=== PATIENT | female | born 1960 | race Caucasian/White ===

== ENCOUNTER 2019-12-04 01:07 | Emergency (ER) | payer OTHER ==
--- OUTSIDE RECORDS SUMMARY | 2019-12-04 01:10 | XMS REPORT | Clinical Summary ---
:1960 Author Organization [facility] Address [address] [place] [address] Care Team Providers Name Role Phone Unavailable Primary Care Provider Unavailable Allergies No Known Allergies Medications Medication Sig Dispensed Refills Start Date End Date Status losartan potassium Take by 0 A ctive (LOSARTAN ORAL) mouth. ondansetron Take 1 tablet 10 tablet 0 04/12/2018 Act blake (ZOFRAN-ODT) 4 MG (4 mg total) disintegrating by mouth tablet every 4 (four) hours as needed for Nausea for up to 10 doses. acetaminophen-codein Take 1-2 20 tablet 0 04/12/2018 05/07/20 19 Discontinued e (TYLENOL #3) tablets by 300-30 mg per tablet mouth every 4 (four) hours as needed for Pain for up to 20 doses. Max Daily Amount: 12 tablets acetaminophen-codein Take 1 tablet 15 tablet 0 05/07/201904/28 e (TYLENOL #3) by mouth 300-30 mg per tablet every 6 (six) hours as needed for up to 10 days. Max Daily Amount: 4 tablets ibuprofen Take 1 tablet 30 tablet 0 05/07/2019 05/17/2019 Expi red (ADVIL,MOTRIN) 400 (400 mg MG tablet total) by mouth every 6 (six) hours as needed for Pain for up to 10 days. Active Problems Not on file Encounters Date Type Specialty Care Team Description 05/07/2019 Emergency Emergency Medicine Cortes Mclean Righ t hand pain (Primary MD Dx) 05/07/2019 Travel after 12/03/2018 Social History Tobacco Use Types Packs/Day Years Used Date Never Smoker Smokeless Tobacco: Never Used Alcohol Use Drinks/Week oz/Week Comments No Sex Assigned at Date Recorded Not on file Job Start Date Occupation Industry Not on file Not on file Not on file Travel History Travel Start Travel End No recent travel history available. Last Filed Vital Signs Vital Sign Reading Time Taken Blood Pressure 122/66 05/07/2019 3:59 PM [employer] Pulse 90 05/07/2019 3:59 PM [employer] Temperature 36.6 C (97.9 F) 05/07/2019 3:59 PM [employer] Respiratory Rate 20 05/07/2019 3:59 PM [employer] Oxygen Saturation 100% 05/07/2019 3:59 PM [employer] Inhaled Oxygen Concentration - - Weight 147.4 kg (325 lb) 05/07/2019 3:59 PM [employer] Height 165.1 cm (5' 5") 05/07/2019 3:59 PM [employer] Body Mass Index 54.08 05/07/2019 3:59 PM [employer] Plan of Treatment Not on file Procedures Procedure Name Priority Date/Time Associated Diagnosis Comme nts XR HAND 3 VIEWS STAT 05/07/2019 4:16 PM Resul ts for this RIGHT [employer] procedure are i n the results section. after 12/03/2018 Results XR hand 3 views right (05/07/2019 4:16 PM [employer]) Specimen Narrative Performed At FINAL REPORT GE RIS EXAM: Right hand: AP, oblique, lateral v iews HISTORY PROVIDED: Hand injury COMPARISON: None available IMPRESSION: There is an ulnar styloid process fractu re of unknown chronicity. The patient is status post plate and screw f ixation involving the distal radius. No evidence of dislocation. The soft tissues demonstrate no radiopaque foreign body or soft tissue g as. Signed: Kay Hall MD Report Verified Date/Time:05/07/2019 16:26:08 Reading Location: [facility] Mammo Reading Ro om Procedure Note Interface, External Ris In - 05/07/2019 4:28 PM [employer] FINAL REPORT EXAM: Right hand: AP, oblique, lateral v iews HISTORY PROVIDED: Hand injury COMPARISON: None available IMPRESSION: There is an ulnar styloid process fractu re of unknown chronicity. The patient is status post plate and screw f ixation involving the distal radius. No evidence of dislocation. The soft tissues demonstrate no radiopaque foreign body or soft tissue g as. Signed: Kay Hall MD Report Verified Date/Time: 05/07/2019 1 6:26:08 Reading Location: [facility] Mammo Reading Ro om Performing Organization Address City/State/Zipcode Phone Number GE RIS after 12/03/2018 Insurance Payer Benefit Plan / Group Subscriber ID Type Phone A ddress [employer] - MGD CARE CIGNA HMO/POS/OPEN ACCESS xxxxxxxxxxx HMO/POS
--- OUTSIDE RECORDS SUMMARY | 2019-12-04 01:11 | XMS REPORT | Continuity of Care Document ---
:1960 Author Organization [facility] t Address [address] [place] [address] Care Team Providers Name Role Phone Juvenal Mclean MD Attending Clinician HAYDE SALAZAR Attending Clinician Unavailable Payers Payer Name Policy Type Policy Number Effective Date Expiration Date S margarita [employer] - MGD xxxxxxxxxxx [facility] - Medical HMO/POS/OPEN Center ACCESSxxxxxxxxx xxHMO/POS Problems This patient has no known problems. Allergies, Adverse Reactions, Alerts Allergy Allergy Status Severity Reaction(s) Onset Inactive Treating Comm ents Source Name Type Date Date Clinician No Known DA Active U 2017-06 [facility] [place] No Known DA Active U [facility] 5[facility]30 [place] [facility] Social History Social Habit Start Date Stop Date Quantity Comments Source Sex Assigned At [facility] Smoking Status Start Date Stop Date Source Never smoker [facility] Medications Ordered Filled Start Stop Current Ordering Indication Dosage Frequency Signature Comments Components Source Medication Medication Date Date Medication? Clinician (SIG) Name Name acetaminoph 2018-06 2019- No 1{tbl} Take [address] en-codeine 1-11 11-21 tablet by [place] - (TYLENOL 00:00: 23:59 mouth Medical #3) 300-30 00 :00 every 6 Center mg per (six) tablet hours as needed for up to 10 days. Max Daily Amount: 4 tablets ibuprofen 2018-06- No 400mg Take [address] [facility] (ADVIL,MOTR 07-07 tablet [facility] [place]) 400 MG 00:00: 23:59 (400 mg Med ical tablet 00 :00 total) by Center mouth every 6 (six) hours as needed for Pain for up to 10 days. losartan 2017-06 Yes Take by [facility] St potassium 0-17 mouth. [facility] - (LOSARTAN 12:05: Medical ORAL) 00 Center ondansetron 2017-06 Yes 4mg Take 1 [facility] (ZOFRAN-ODT 0-17 tablet (4 [place] - ) 4 MG 00:00: mg total) Medica l disintegrat 00 by mouth Cent er ing tablet every 4 (four) hours as needed for Nausea for up to 10 doses. acetaminoph 2017-06- No 1{tbl} Take 1-[address] en-codeine 0-17 05-07 tablets by [facility] - (TYLENOL 00:00: 00:00 mouth Medical #3) 300-30 00 :00 every 4 Center mg per (four) tablet hours as needed for Pain for up to 20 doses. Max Daily Amount: 12 tablets Vital Signs Vital Name Observation Time Observation Value Comments Source Systolic blood 2019-05-07 15:59:00 122 mm[Hg] [facility] Diastolic blood 2019-05-07 15:59:00 66 mm[Hg] [facility] S t [facility] Heart rate 2019-05-07 15:59:00 90 /min [facility] Body temperature 2019-05-07 15:59:00 36.61 Radha [facility] Respiratory rate 2019-05-07 15:59:00 20 /min [facility] Body height 2019-05-07 15:59:00 165.1 cm [facility] Body weight Measured 2019-05-07 15:59:00 147.419 kg [facility] BMI 2019-05-07 15:59:00 54.08 kg/m2 [facility] Oxygen saturation in 2019-05-07 15:59:00 100 /min [facility] - Arterial blood by Medical Ce nter Pulse oximetry Procedures Procedure Date / Time Performed Performing Clinician Sourc e XR HAND 3 VIEWS RIGHT 2019-05-07 16:16:00 [facility] Results Test Description Test Time Test Comments Results Result Sourc e Comments RAD, HAND, 3 2019-04-27 Reason for FINAL REPORT PATIENT VIEWS, RIGHT 1 exam:->HAND ID: [id number] EXAM: 16:26:00 INJURYIs the Right hand: AP, patient oblique, lateral ?->NoS views HISTORY hould this be PROVIDED: Hand performed at injury COMPARISON: the None available bedside?->No IMPRESSION:There is an ulnar styloid process fracture of unknown chronicity. The patient is status post plate and screw fixation involving the distal radius. No evidence of dislocation. The soft tissues demonstrate no radiopaque foreign body or soft tissue gas. Signed: Kay Hall Verified Date/Time: 05/07/2019 16:26:08 Reading Location: [facility] Reading Room hand 3 views 2019-04-27 Interface, External [facility] right 1 Ris In - 05/07/2019 - [facility] ical 16:26:00 4:28 PM [facility] Center REPORT EXAM: Right hand: AP, oblique, lateral views HISTORY PROVIDED: Hand injury COMPARISON: None available IMPRESSION:There is an ulnar styloid process fracture of unknown chronicity. The patient is status post plate and screw fixation involving the distal radius. No evidence of dislocation. The soft tissues demonstrate no radiopaque foreign body or soft tissue gas. Signed: Kay Hall Verified Date/Time: 05/07/2019 16:26:08 Reading Location: [facility] Reading Room , ABDOMEN 2018-03-27 FINAL REPORT PATIENT 7 ID: [id number] 14:37:00 INDICATION:57-year-o ld female with flank pain. COMPARISON: None. TECHNIQUE: CT of the Abdomen and Pelvis WITHOUT intravenous contrast. Enteric contrast was not used. The exam was performed according to our department dose-optimization protocol, which includes automated exposure control, adjustments of mA and kV according to patient size. Iterative reconstructions are also sometimes employed. FINDINGS:There is a 4 x 2 mm stone in a calyx of the lower pole of the left kidney. No hydronephrosis or periureteral stranding is demonstrated. Left extrarenal pelvis is noted. The left hemiabdomen is partially obscured by streak artifact from the patient's body wall up against the gantry. No gross renal mass demonstrated. Pelvic structures are not well visualized as of streak artifact from internal fixation plate across the pubic symphysis and because of streak artifact from the patient's body wall up against the gantry. No obvious pelvic mass is demonstrated. Liver, gallbladder, pancreas, spleen, adrenal glands are unremarkable. No bowel mass is identified. No peritoneal free fluid or free air. Osseous structures, to the extent visualized, unremarkable. IMPRESSION: 4 x 2 mm stone in the lower pole of the left kidney. No obstructing urolithiasis demonstrated, though sensitivity is decreased because of streak artifact from the patient's body wall up against the gantry. Signed: Armando Vergara MDReport Verified Date/Time: 04/12/2018 14:37:51 Reading Location: [facility] Diagnostic Imaging Reading Room - [place] [id number] C METABOLIC PANEL 2018-04-12 13:17:00 Test Item Value Reference Range Interpretation Comme nts SODIUM (BEAKER) (test code 140 meq/L 135-148 = 381) POTASSIUM (BEAKER) (test 4.1 meq/L 3.6-5.5 code = 379) CHLORIDE (BEAKER) (test 100 meq/L 98-106 code = 382) CO2 (BEAKER) (test code = 28 meq/L 24-32 355) BLOOD UREA NITROGEN 25 mg/dL 10-26 (BEAKER) (test code = 354) CREATININE (BEAKER) (test 0.95 mg/dL 0.50-1.20 code = 358) GLUCOSE RANDOM (BEAKER) 154 mg/dL 70-110 H (test code = 652) CALCIUM (BEAKER) (test code 9.3 mg/dL 8.5-10.5 = 697) EGFR (BEAKER) (test code = mL/min/1.73 sq m INSUFFICIENT CLINICAL DATA 1092) TO CALCULATE ES TIMATED GFR. [id number] 13:17:00 Test Item Value Reference Range Interpretation Comments PROTIME (BEAKER) (test code = 10.2 seconds 9.8-12.0 759) INR (BEAKER) (test code = 370) 0.9 <=5.9 PARTIAL THROMBOPLASTIN TIME 22.9 seconds 25.8-34.5 L (BEAKER) (test code = 760) RECOMMENDED COUMADIN/WARFARIN INR THERAPY RANGESSTANDARD DOSE: 2.0 - 3.0 Includes: PROPHYLAXIS forvenous thrombosis, systemic embolization; TREATMENT for venous thrombosis and/or pulmonary embolus.HIGH RISK: Target INR is 2.5-3.5 for patients with mechanical heart valves.HEPATIC FUNCTION [id number] 13:15:00 Test Item Value Reference Range Interpretation Comments TOTAL PROTEIN (BEAKER) (test code = 8.0 gm/dL 6.0-8.5 770) ALBUMIN (BEAKER) (test code = 1145) 4.0 g/dL 3.5-5.0 BILIRUBIN TOTAL (BEAKER) (test code 0.5 mg/dL 0.1-1.2 = 377) BILIRUBIN DIRECT (BEAKER) (test 0.1 mg/dL 0.0-0.4 code = 706) ALKALINE PHOSPHATASE (BEAKER) (test 96 U/L 30-115 code = 346) AST (SGOT) (BEAKER) (test code = 28 U/L 5-40 353) ALT (SGPT) (BEAKER) (test code = 43 U/L 5-50 347) [id number] 13:15:00 Test Item Value Reference Range Interpretation Comments LIPASE (BEAKER) (test code = 749) 128 U/L 40-240 CBC W/PLT COUNT & AUTO [id number] 13:09:00 Test Item Value Reference Range Interpretation Comments WHITE BLOOD CELL COUNT (BEAKER) 11.1 K/ L 4.0-10.0 H (test code = 775) RED BLOOD CELL COUNT (BEAKER) 4.91 M/ L 4.00-5.00 (test code = 761) HEMOGLOBIN (BEAKER) (test code = 14.1 GM/DL 12.0-15.0 410) HEMATOCRIT (BEAKER) (test code = 43.7 % 36.0-45.0 411) MEAN CORPUSCULAR VOLUME (BEAKER) 89.0 fL 82.0-99.0 (test code = 753) MEAN CORPUSCULAR HEMOGLOBIN 28.8 pg 27.0-33.0 (BEAKER) (test code = 751) MEAN CORPUSCULAR HEMOGLOBIN CONC 32.3 GM/DL 32.0-36.0 (BEAKER) (test code = 752) RED CELL DISTRIBUTION WIDTH 12.3 % 10.3-14.2 (BEAKER) (test code = 412) PLATELET COUNT (BEAKER) (test 312 K/CU MM 150-430 code = 756) MEAN PLATELET VOLUME (BEAKER) 8.2 fL 6.5-10.5 (test code = 754) NEUTROPHILS RELATIVE PERCENT 69 % (BEAKER) (test code = 429) LYMPHOCYTES RELATIVE PERCENT 22 % (BEAKER) (test code = 430) MONOCYTES RELATIVE PERCENT 7 % (BEAKER) (test code = 431) EOSINOPHILS RELATIVE PERCENT 2 % (BEAKER) (test code = 432) BASOPHILS RELATIVE PERCENT 1 % (BEAKER) (test code = 437) NEUTROPHILS ABSOLUTE COUNT 7.64 K/ L 1.80-8.00 (BEAKER) (test code = 670) LYMPHOCYTES ABSOLUTE COUNT 2.39 K/ L 1.48-4.50 (BEAKER) (test code = 414) MONOCYTES ABSOLUTE COUNT (BEAKER) 0.76 K/ L 0.00-1.30 (test code = 415) EOSINOPHILS ABSOLUTE COUNT 0.20 K/ L 0.00-0.50 (BEAKER) (test code = 416) BASOPHILS ABSOLUTE COUNT (BEAKER) 0.12 K/ L 0.00-0.20 (test code = 417) URINALYSIS W/ [id number] 12:33:00 Test Item Value Reference Range Interpretation Comments COLOR (BEAKER) (test code = 470) Yellow CLARITY (BEAKER) (test code = 469) Cloudy SPECIFIC GRAVITY UA (BEAKER) (test 1.025 1.001-1.035 code = 468) PH UA (BEAKER) (test code = 467) 5.5 5.0-8.0 PROTEIN UA (BEAKER) (test code = 30 mg/dL Negative A 464) GLUCOSE UA (BEAKER) (test code = Negative Negative 365) KETONES UA (BEAKER) (test code = Negative Negative 371) BILIRUBIN UA (BEAKER) (test code = Negative Negative 462) BLOOD UA (BEAKER) (test code = Moderate Negative A 461) NITRITE UA (BEAKER) (test code = Negative Negative 465) LEUKOCYTE ESTERASE UA (BEAKER) Trace Negative A (test code = 466) UROBILINOGEN UA (BEAKER) (test 0.2 mg/dL 0.2-1.0 code = 463) BACTERIA (BEAKER) (test code = Moderate 517) RBC UA-MANUAL (BEAKER) (test code 10-20 /HPF = 1659) WBC UA-MANUAL (BEAKER) (test code 20-50 /HPF = 1661) SQUAMOUS EPITHELIAL MANUAL 20-50 /HPF (BEAKER) (test code = 1663) SOURCE(BEAKER) (test code = 8866)
[2019-12-04 01:44] LABS: Urine Blood 3+ (NEG); Urine Glucose NEGATIVE (NEG); Urine Protein 3+ (NEG); Urine Specific Gravity 1.025 (1.005-1.030); Urine pH 6.5 (5.0-7.0)
[2019-12-04] MEDS ORDERED: ONDANSETRON 4 MG/2 ML VIAL ONE (01:47)
[2019-12-04] MEDS ORDERED: NA CHLORIDE 0.9% 1,000 ML ONE (01:47)
[2019-12-04] MEDS ORDERED: MORPHINE 4 MG/ML SYR ONE (01:47)
[2019-12-04 02:13] LABS: Absolute Lymphocytes (CBC) 2.3 K/uL (0.7-4.9); Basophils % 1.2 % (0-1.3); Hematocrit 42.9 % (36.0-45.0); Lymphocytes % 21.6 % (15.3-44.8); MPV 9.8 fL (7.6-11.3)
[2019-12-04 02:29] LABS: Albumin 3.3 g/dL (3.4-5.0); Bilirubin Direct 0.1 mg/dL (0-0.2); Bilirubin Total 0.5 mg/dL (0.2-1.0); Potassium 4.2 mmol/L (3.5-5.1); Protein, Total 7.8 g/dL (6.4-8.2)
[2019-12-04] MEDS ORDERED: METOCLOPRAMIDE 10 MG/2mL INJ ONE (03:17)
[2019-12-04] MEDS ORDERED: CEFTRIAXONE/SWI 1gm 1 GM/10 ML SYR ONE (03:35)
[2019-12-04] MEDS ORDERED: KETOROLAC 30 MG/ML INJ ONE (03:57)
--- NOTE | 2019-12-04 04:37 | ER ---
Nurse's Notes [facility] Name: Lidia Concepcion Age: 59 yrs Sex: Female : 1960 Arrival Date: 12/04/2019 Time: :09 Bed 6 Private MD: Diagnosis: Calculus of kidney and ureter;Urinary tract infection, site not specified Presentation: 12/03 01:19 Chief complaint: Patient states: At about 10PM last night I started having low back tl1 pain and pelvic pain. I also have a lot of pressure and feel like I have to constantly urinate. I am also nauseated. Coronavirus screen: Patient denies a cough. Patient denies shortness of breath or difficulty breathing. Patient denies measured and/or subjective temperature greater than 100.4F prior to today's visit. Patient denies travel on a cruise ship or to a country the [facility] currently lists as an affected area. Patient denies contact with known and/or suspected case of COVID-19. Ebola Screen: Patient negative for fever greater than or equal to 101.5 degrees Fahrenheit, and additional compatible Ebola Virus Disease symptoms Patient denies exposure to infectious person. Patient denies travel to an Ebola-affected area in the 21 days before illness onset. Initial Sepsis Screen: Does the patient meet any 2 criteria? HR > 90 bpm. Does the patient have a suspected source of infection? No. Patient's initial sepsis screen is negative. Risk Assessment: Do you want to hurt yourself or someone else? Patient reports no desire to harm self or others. Onset of symptoms was December 03, 2019. 01:19 Method Of Arrival: Wheelchair tl1 01:19 Acuity: DIANA 3 tl1 Historical: - Allergies: 01:23 No Known Allergies; tl1 - Home Meds: 01:23 losartan-hydrochlorothiazide 100-25 mg Oral tab 1 tab once daily [Active]; tl1 - PMHx: 01:23 Hypertension; Obesity; tl1 - PSHx: 01:23 back surgery; wrist surgery; pelvic surgery; tl1 - Immunization history:: Adult Immunizations up to date. - Social history:: Smoking status: Patient denies any tobacco usage or history of. Patient uses alcohol, occasionally. Screenin:49 Abuse screen: Denies threats or abuse. Denies injuries from another. Nutritional wh screening: No deficits noted. Tuberculosis screening: No symptoms or risk factors identified. Fall Risk None identified. Assessment: 01:48 General: Appears in no apparent distress. Behavior is calm, cooperative, appropriate wh for age. Pain: Complains of pain in left lower quadrant Pain radiates to suprapubic area and left inguinal area Pain currently is 10 out of 10 on a pain scale. Quality of pain is described as throbbing, Pain began 3 hours ago. Is intermittent. Neuro: Level of Consciousness is awake, alert, obeys commands, Oriented to person, place, time, situation, Appropriate for age. Cardiovascular: Heart tones S1 S2. Respiratory: Airway is patent Respiratory effort is even, unlabored, Respiratory pattern is regular, symmetrical, Breath sounds are clear bilaterally. GI: Abdomen is flat, non-distended, Reports nausea. : Reports pain in suprapubic area. EENT: No signs and/or symptoms were reported regarding the EENT system. Derm: Skin is intact, is healthy with good turgor, Skin is pink, warm \T\ dry. normal. Musculoskeletal: Circulation, motion, and sensation intact. 03:04 Reassessment: Patient appears in no apparent distress at this time. No changes from previously documented assessment. Patient and/or family updated on plan of care and expected duration. Pain level reassessed. Patient is alert, oriented x 3, equal unlabored respirations, skin warm/dry/pink. 04:39 Reassessment: Patient appears in no apparent distress at this time. No changes from previously documented assessment. Patient and/or family updated on plan of care and expected duration. Pain level reassessed. Patient is alert, oriented x 3, equal unlabored respirations, skin warm/dry/pink. Patient states feeling better. Patient states symptoms have improved. Vital Signs: 01:22 BP 130 / 100; Pulse 102; Resp 19; Temp 97.9(O); Pulse Ox 98% ; Weight 141.52 kg; Height tl1 5 ft. 4 in. (162.56 cm); Pain 10/10; 03:04 BP 124 / 60; Pulse 101; Resp 18; Pulse Ox 97% on R/A; wh 04:30 BP 128 / 72; Pulse 98; Resp 18; Pulse Ox 99% on R/A; wh 01:22 Body Mass Index 53.55 (141.52 kg, 162.56 cm) tl1 ED Course: 01:09 Patient arrived in ED. ds1 01:13 Wood Xiong is Primary Nurse. wh 01:14 Anthony Gonzalez MD is Attending Physician. mh7 01:22 Triage completed. tl1 01:22 Arm band placed on right wrist. tl1 01:50 Patient has correct armband on for positive identification. Placed in gown. Bed in low wh position. Call light in reach. Side rails up X 1. Pulse ox on. NIBP on. 01:50 Missed attempt(s): 20 gauge in right antecubital area. Bleeding controlled, band aid wh applied, catheter tip intact. 02:00 Inserted saline lock: 20 gauge in left forearm, using aseptic technique. Blood wh collected. 03:13 CT Abd/Pelvis - IV Contrast Only In Process Unspecified. EDMS 04:34 Patti Gupta MD is Referral Physician. 7 04:49 No provider procedures requiring assistance completed. IV discontinued, intact, wh bleeding controlled, No redness/swelling at site. Administered Medications: 01:50 Drug: NS 0.9% 1000 ml Route: IV; Rate: 1000 ml; Site: left forearm; rr5 03:16 Follow up: Response: No adverse reaction; IV Status: Completed infusion 01:51 Drug: Zofran (Ondansetron) 4 mg Route: IVP; Site: left forearm; rr5 03:16 Follow up: Response: Nausea unchanged 01:53 Drug: morphine 4 mg {Note: rass 0.} Route: IVP; Site: left forearm; rr5 03:16 Follow up: Response: No adverse reaction; Pain is unchanged, physician notified; RASS: Alert and Calm (0) 03:15 Drug: Reglan 10 mg Route: IVP; Site: left antecubital; 04:41 Follow up: Response: No adverse reaction; Nausea is decreased 03:32 Drug: Rocephin - (cefTRIAXone) 1 grams Route: IVPB; Infused Over: 30 mins; Site: left wh forearm; 04:41 Follow up: Response: No adverse reaction; IV Status: Completed infusion 03:53 Drug: TORadol 30 mg Route: IVP; Site: left forearm; 04:41 Follow up: Response: No adverse reaction; Pain is decreased Outcome: 04:36 Discharge ordered by mh7 04:49 Discharged to home via wheelchair. 04:49 Condition: stable 04:49 Discharge instructions given to patient, Instructed on discharge instructions, follow up and referral plans. medication usage, urine strainer, POC Demonstrated understanding of instructions, follow-up care, medications, POC Prescriptions given X 4. 04:50 Patient left the ED. Signatures: Dispatcher [employer] EDMN Shameka Huerta ds1 Umm Tamayo RN RN tl1 Wood Xiong Reynaldo Bowers RN RN rr5 Anthony Gonzalez MD MD mh7 Corrections: (The following items were deleted from the chart) 03:23 03:04 BP 124 / 60; Pulse 101bpm; Resp 1bpm; Pulse Ox 97% RA; [facility]
--- NOTE | 2019-12-04 04:37 | EDPHYS ---
Physician Documentation [facility] Name: Lidia Concepcion Age: 59 yrs Sex: Female : 1960 Arrival Date: 12/04/2019 Time: : Bed 6 Private MD: ED Physician Anthony Gonzalez HPI: 12/03 01:31 This 59 yrs old Female presents to ER via Wheelchair with complaints of mh7 Pelvic Pain, Back Pain. 01:32 The patient complains of pain in the left flank. The pain radiates to the left lower mh7 abdomen. Onset: The symptoms/episode began/occurred today, 3 hour(s) ago. Modifying factors: The symptoms are alleviated by nothing. the symptoms are aggravated by movement. Associated signs and symptoms: Pertinent positives: nausea, Pertinent negatives: diarrhea, dizziness, dysuria, fever, urinary frequency, headache, hematuria, pain radiating to the lower extremities, vomiting. Severity of pain: At its worst the pain was moderate today, in the emergency department the pain is unchanged. Historical: - Allergies: 01:23 No Known Allergies; tl1 - Home Meds: 01:23 losartan-hydrochlorothiazide 100-25 mg Oral tab 1 tab once daily [Active]; tl1 - PMHx: 01:23 Hypertension; Obesity; tl1 - PSHx: 01:23 back surgery; wrist surgery; pelvic surgery; tl1 - Immunization history:: Adult Immunizations up to date. - Social history:: Smoking status: Patient denies any tobacco usage or history of. Patient uses alcohol, occasionally. ROS: 01:32 Constitutional: Negative for fever, chills, and weight loss, Eyes: Negative for injury, mh7 pain, redness, and discharge, ENT: Negative for injury, pain, and discharge, Neck: Negative for injury, pain, and swelling, Cardiovascular: Negative for chest pain, palpitations, and edema, Respiratory: Negative for shortness of breath, cough, wheezing, and pleuritic chest pain, : Negative for injury, bleeding, discharge, and swelling, MS/Extremity: Negative for injury and deformity, Skin: Negative for injury, rash, and discoloration, Neuro: Negative for headache, weakness, numbness, tingling, and seizure, Psych: Negative for depression, anxiety, suicide ideation, homicidal ideation, and hallucinations, Allergy/Immunology: Negative for hives, rash, and allergies, Endocrine: Negative for neck swelling, polydipsia, polyuria, polyphagia, and marked weight changes, Hematologic/Lymphatic: Negative for swollen nodes, abnormal bleeding, and unusual bruising. Exam: 01:32 Constitutional: This is a well developed, well nourished patient who is awake, alert, mh7 and in no acute distress. Head/Face: Normocephalic, atraumatic. Eyes: Pupils equal round and reactive to light, extra-ocular motions intact. Lids and lashes normal. Conjunctiva and sclera are non-icteric and not injected. Cornea within normal limits. Periorbital areas with no swelling, redness, or edema. Neck: Trachea midline, no thyromegaly or masses palpated, and no cervical lymphadenopathy. Supple, full range of motion without nuchal rigidity, or vertebral point tenderness. No Meningismus. Chest/axilla: Normal chest wall appearance and motion. Nontender with no deformity. No lesions are appreciated. Cardiovascular: Regular rate and rhythm with a normal S1 and S2. No gallops, murmurs, or rubs. Normal PMI, no JVD. No pulse deficits. Respiratory: Lungs have equal breath sounds bilaterally, clear to auscultation and percussion. No rales, rhonchi or wheezes noted. No increased work of breathing, no retractions or nasal flaring. 01:32 Skin: Warm, dry with normal turgor. Normal color with no rashes, no lesions, and no evidence of cellulitis. MS/ Extremity: Pulses equal, no cyanosis. Neurovascular intact. Full, normal range of motion. Neuro: Awake and alert, GCS 15, oriented to person, place, time, and situation. Cranial nerves II-XII grossly intact. Motor strength 5/5 in all extremities. Sensory grossly intact. Cerebellar exam normal. Normal gait. Psych: Awake, alert, with orientation to person, place and time. Behavior, mood, and affect are within normal limits. 01:32 Abdomen/GI: Inspection: abdomen appears normal, obese Bowel sounds: normal, in all quadrants, Palpation: mild abdominal tenderness, in the left lower quadrant, Rectal exam: the exam is deferred, because of patient request, Indicators: McBurney's point is not tender, Nam's sign is negative, Rovsing's sign is negative, Obturator sign is negative, Psoas sign is negative, Liver: no appreciated palpable abnormalities, Hernia: not appreciated. 01:32 Back: pain, is absent, ROM is normal, normal spinal alignment noted, CVA tenderness, that is mild, is noted on the left, vertebral tenderness, is not appreciated, muscle spasm, is not present. 01:32 : CVA tenderness, on the left, Bladder: is normal. Vital Signs: 01:22 BP 130 / 100; Pulse 102; Resp 19; Temp 97.9(O); Pulse Ox 98% ; Weight 141.52 kg; Height tl1 5 ft. 4 in. (162.56 cm); Pain 10/10; 03:04 BP 124 / 60; Pulse 101; Resp 18; Pulse Ox 97% on R/A; wh 04:30 BP 128 / 72; Pulse 98; Resp 18; Pulse Ox 99% on R/A; wh 01:22 Body Mass Index 53.55 (141.52 kg, 162.56 cm) tl1 MDM: 01:29 Patient medically screened. [facility] 04:09 Differential diagnosis: nephrolithiasis, pyelonephritis, UTI, diverticulitis, ruptured mh7 AAA, dissecting AAA. Data reviewed: vital signs, nurses notes, lab test result(s), CBC, electrolytes, urinalysis, radiologic studies, CT scan. Data interpreted: Pulse oximetry: on room air is 97 %. Interpretation: normal. Counseling: I had a detailed discussion with the patient and/or guardian regarding: the historical points, exam findings, and any diagnostic results supporting the discharge/admit diagnosis, lab results, radiology results. 04:34 Counseling: I had a detailed discussion with the patient and/or guardian regarding: the mh7 need for outpatient follow up, to return to the emergency department if symptoms worsen or persist or if there are any questions or concerns that arise at home. Response to treatment: the patient's symptoms have resolved after treatment, the patient's blood pressure is in an acceptable range, mental status has returned to baseline, the patient no longer shows bradycardia, the patient is not short of breath, the patient is not tachycardic, the patient's pain is gone, the patient's temperature has normalized. 12/03 01:30 Order name: Urine Dipstick--Ancillary (enter results); Complete Time: 02:03 [place]j 12/03 01:30 Order name: Basic Metabolic Panel; Complete Time: 02:36 [facility] 12/03 01:30 Order name: CBC with Diff; Complete Time: 02:36 [facility] 12/03 01:30 Order name: Hepatic Function; Complete Time: 02:36 [facility] 12/03 01:30 Order name: Lipase; Complete Time: 02:36 [facility] 12/03 01:31 Order name: CT Abd/Pelvis - IV Contrast Only [facility] 12/03 01:30 Order name: IV Saline Lock; Complete Time: 01:46 [facility] 12/03 01:30 Order name: Labs collected and sent; Complete Time: :46 7 Administered Medications: 01:50 Drug: NS 0.9% 1000 ml Route: IV; Rate: 1000 ml; Site: left forearm; rr5 03:16 Follow up: Response: No adverse reaction; IV Status: Completed infusion 01:51 Drug: Zofran (Ondansetron) 4 mg Route: IVP; Site: left forearm; rr5 03:16 Follow up: Response: Nausea unchanged 01:53 Drug: morphine 4 mg {Note: rass 0.} Route: IVP; Site: left forearm; rr5 03:16 Follow up: Response: No adverse reaction; Pain is unchanged, physician notified; RASS: Alert and Calm (0) 03:15 Drug: Reglan 10 mg Route: IVP; Site: left antecubital; 04:41 Follow up: Response: No adverse reaction; Nausea is decreased 03:32 Drug: Rocephin - (cefTRIAXone) 1 grams Route: IVPB; Infused Over: 30 mins; Site: left forearm; 04:41 Follow up: Response: No adverse reaction; IV Status: Completed infusion 03:53 Drug: TORadol 30 mg Route: IVP; Site: left forearm; wh 04:41 Follow up: Response: No adverse reaction; Pain is decreased Disposition: 12/04/19 04:36 Discharged to Home. Impression: Calculus of kidney and ureter, Urinary tract infection, site not specified. - Condition is Stable. - Discharge Instructions: Kidney Stones, [id number], Urinary Tract Infection, Adult, [id number]. - Prescriptions for Zofran ODT 4 mg Oral tablet,disintegrating - place 1 tablet by TRANSLINGUAL route every 8 hours As needed; 10 tablet. ketorolac 10 mg Oral tablet - take 1 tablet by ORAL route every 8 hours As needed not to exceed 40 mg in 24hrs; 15 tablet. Flomax 0.4 mg Oral Capsule, Sust. Release 24 hr - take 1 capsule by ORAL route once daily 1/2 hour following the same meal each day; 30 capsule. Cipro 500 mg Oral Tablet - take 1 tablet by ORAL route every 12 hours for 7 days; 14 tablet. - Medication Reconciliation Form, Thank You Letter, Antibiotic Education, Prescription Opioid Use form. - Follow up: Private Physician; When: 1 - 2 days; Reason: Worsening of condition, Recheck today's complaints, Re-evaluation by your physician. Follow up: Patti Gupta MD; When: 1 - 2 days; Reason: Worsening of condition, Recheck today's complaints. - Problem is an acute exacerbation. - Symptoms have improved. Signatures: Dispatcher [employer] EDIA Umm Tamayo RN RN tl1 Wood Xiong Raymond, RN RN rr5 Anthony Gonzalez MD MD mh7 Corrections: (The following items were deleted from the chart) 04:50 04:36 12/04/2019 04:36 Discharged to Home. Impression: Calculus of kidney and ureter; wh Urinary tract infection, site not specified. Condition is Stable. Forms are Medication Reconciliation Form, Thank You Letter, Antibiotic Education, Prescription Opioid Use. Follow up: Private Physician; When: 1 - 2 days; Reason: Worsening of condition, Recheck today's complaints, Re-evaluation by your physician. Follow up: Patti Gupta; When: 1 - 2 days; Reason: Worsening of condition, Recheck today's complaints. Problem is an acute exacerbation. Symptoms have improved. mh7
[2019-12-04 04:55] VITALS: TEMP 97.9
[2019-12-04 04:58] VITALS: BP 128/72; O2SAT 99
--- NOTE | 2019-12-04 15:45 | RAD REPORT ---
EXAM DESCRIPTION: CT - Abdomen Pelvis W Contrast - 12/04/2019 6:52 am CLINICAL HISTORY: ABD PAIN COMPARISON: None. TECHNIQUE: CT ABDOMEN PELVIS WITH IV CONTRAST on 12/04/2019 1:31 AM CDT This exam was performed according to our departmental dose-optimization program, which includes autom ated exposure control, adjustment of the mA and/or kV according to patient size and/or use of iterati ve reconstruction technique. FINDINGS: Lower lungs are clear. Abdomen: Liver is fatty in attenuation. There is no biliary dilatation. Gallbladder is normal in appe arance. The pancreas and spleen are normal in appearance. Adrenal glands are normal. Kidneys are mild ly atrophic. There is a large central collecting system calculus within the right kidney measuring 2. 3 cm. There is mild left hydronephrosis with two lower pole calculi measuring up to 4 mm. There is a 3 mm left UVJ calculus. Abdominal aorta is normal in course and caliber without aneurysm. There is no free air. There is no r etroperitoneal adenopathy. Pelvis: There is no bowel obstruction. Urinary bladder is unremarkable. There is no free fluid. Uteru s is normal in size. Appendix is not well seen. There are postoperative changes of the symphysis pubi s. Skeleton: There are no acute osseous findings. No suspicious bony lesions. IMPRESSION: Mildly obstructing 3 mm left UVJ calculus. Electronically signed by: Gerardo Goodrich MD 12/04/2019 3:26 AM CDT Due to temporary technical issues with the PACS/Fluency reporting system, reports are being signed by the in house radiologist without review as a courtesy to ensure prompt reporting. The interpreting r adiologist is fully responsible for the content of the report.
== END 2019-12-04 04:50 | disposition home or self-care (01) ==
LOC: ER 01:07
DX: N20.2 Calculus of kidney with calculus of ureter (principal); N39.0 Urinary tract infection, site not specified; I10 Essential (primary) hypertension; E66.9 Obesity, unspecified
CPT/HCPCS: 96365; 96361; 85025; 80048; 36415; 80076; 81003; 83690; 74177; 96375; 99284; Q9967; J2765; J0696; J7030; J2405

== ENCOUNTER → 2023-09-21 | Emergency (ER) | payer OTHER ==
[~2023-09-21] MED LIST: ACETAMINOPHEN 500 MG TAB ONE; GUAIFENESIN/DM 5 ML UCUP ONE; IBUPROFEN 400 MG TAB ONE; ONDANSETRON 4 MG (ODT) TAB ONE
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
--- NOTE | 2023-09-21 21:11 | RAD REPORT ---
EXAM DESCRIPTION: Marly Single View09/21/2023 9:01 pm CLINICAL HISTORY: Chest pain COMPARISON: none FINDINGS: The lungs appear clear of acute infiltrate. The heart is normal size IMPRESSION: No acute abnormalities displayed
--- NOTE | 2023-09-21 21:21 | RAD REPORT ---
EXAM DESCRIPTION: CT - Head Brain Wo Cont - 09/21/2023 9:11 pm CLINICAL HISTORY: Headache COMPARISON: none TECHNIQUE: Computed axial tomography of the head was obtained. IV contrast was not requested. All CT scans are performed using dose optimization technique as appropriate and may include automated exposure control or mA/KV adjustment according to patient size. FINDINGS: An intracranial bleed is not seen The ventricles are normal in caliber No significant hypodense areas within the brain visualized No extra-axial fluid collection is noted. Left maxillary sinuses completely opacified IMPRESSION: No acute intracranial abnormality is seen Complete opacification left maxillary sinus probably chronic sinusitis If patient's symptoms persist MRI of the brain would be recommended
[2023-09-21 21:50] LABS: Absolute Basophils 0.1 K/uL (0-0.5); Absolute Eosinophils 0.1 K/uL (0-0.5); Absolute Lymphocytes (CBC) 2.2 K/uL (0.7-4.9); Absolute Monocytes 0.7 K/uL (0.1-1.3); Absolute Neutrophil 8.1 K/uL (1.8-8.0); Basophils % 0.6 % (0-1.3); Eosinophils % 0.7 % (0-4.4); Hematocrit 40.1 % (36.0-45.0); Hemoglobin 13.4 g/dL (12.0-15.0); MCH 29.5 pg (27.0-35.0); MCHC 33.3 g/dL (32.0-36.0); MCV 88.5 fL (80-100); MPV 9.4 fL (7.6-11.3); Neutrophils % 72.7 % (41.7-73.7); Platelets 283 thou/uL (152-406); RBC Red Blood Cell Count 4.53 M/uL (3.86-4.86); Red Cell Distribution Width 14.7 % (12.1-15.2)
[2023-09-21 22:10] LABS: Specific Gravity 1.014 (1.005-1.030); Sqamous Epithelial <5 /HPF (None Seen); Urine Bacteria 20-50 /HPF (<20); Urine Bilirubin NEGATIVE (Negative); Urine Blood Trace (Negative); Urine Clarity Extremely Turbid (Clear); Urine Color Light-Yellow (Yellow); Urine Culture Reflex Order REFLEXED; Urine Glucose NEGATIVE (Negative); Urine Ketones NEGATIVE (Negative); Urine Micro Reflex YN NO BILL MICROSCOPIC; Urine Mucus Slight /HPF (None Seen); Urine Nitrite 2+ (Negative); Urine Protein NEGATIVE (Negative); Urine Urobilinogen Normal (Normal); Urine WBC >50 /HPF (<5); Urine WBC Clump Rare /HPF (None Seen); Urine pH 5.5 (5.0-7.0)
[2023-09-21 22:11] LABS: Albumin 3.5 g/dL (3.4-5.0); Albumin/Globulin Ratio 0.8 (1.1-1.8); Anion Gap 13.3 mEq/L (5.0-15.0); Bilirubin Direct 0.3 mg/dL (0-0.2); Bilirubin Indirect, Calculated 0.7 mg/dL (0.2-0.8); Globulin 4.5 g/dL (2.3-3.5); Magnesium 1.2 mg/dL (1.6-2.4); Potassium 3.3 mEq/L (3.5-5.1); Troponin High Sensitivity 5.1 pg/mL (<58.9)
[2023-09-21 22:14] LABS: SARS-CoV-2 Antigen CONTROL BLUE LINE VIS/BG OK; SARS-CoV-2 Antigen Rapid Res Negative (Negative)
[2023-09-21 22:31] LABS: PT Prothrombin Time 13.1 SECONDS (9.5-12.5); Protime INR 1.2
--- NOTE | 2023-09-21 22:37 | ER ---
Nurse's Notes [facility] Name: Lidia Concepcion Age: 63 yrs Sex: Female : 1960 Arrival Date: 09/21/2023 Time: 19:46 Bed 6 Private MD: Diagnosis: UTI/ Urinary tract infection, site not specified;Left maxillary sinusitis, chronic sinusitis, acute systemic viral illness, Common cold Presentation: 09/20 20:15 Chief complaint: Patient states: SOB, cough X4 days, nausea with no appetite. vc1 Lightheaded with cough. Coronavirus screen: Vaccine status: Patient reports receiving the 2nd dose of the covid vaccine. cough unrelated to allergies, nausea, shortness of breath, Client presents with at least one sign or symptom that may indicate coronavirus-19. Ebola Screen: Patient negative for fever greater than or equal to 101.5 degrees Fahrenheit, and additional compatible Ebola Virus Disease symptoms Patient denies exposure to infectious person. Patient denies travel to an Ebola-affected area in the 21 days before illness onset. No symptoms or risks identified at this time. Initial Sepsis Screen: Does the patient meet any 2 criteria? No. Patient's initial sepsis screen is negative. Does the patient have a suspected source of infection? No. Patient's initial sepsis screen is negative. Risk Assessment: Do you want to hurt yourself or someone else? Patient reports no desire to harm self or others. Onset of symptoms was September 17, 2023. Care prior to arrival: None. Activity prior to arrival: None. Mechanism of Injury: No Mechanism of Injury. Transition of care: patient was not received from another setting of care. 20:15 Method Of Arrival: Ambulatory vc1 20:15 Acuity: DIANA 3 vc1 Triage Assessment: 20:25 General: Appears in no apparent distress. uncomfortable, obese, Behavior is vc1 cooperative, talkative. Pain: Complains of pain in headache Pain does not radiate. Pain currently is 5 out of 10 on a pain scale. EENT: No deficits noted. No signs and/or symptoms were reported regarding the EENT system. Neuro: Level of Consciousness is awake, alert, obeys commands, Oriented to person, place, time, situation, Appropriate for age. Cardiovascular: No deficits noted. Respiratory: Reports shortness of breath cough that is dry, since 4 days Airway is patent Respiratory effort is even, unlabored, Respiratory pattern is regular, symmetrical, the patient has mild shortness of breath. GI: Reports nausea, not wanting to eat. : No deficits noted. No signs and/or symptoms were reported regarding the genitourinary system. Derm: No deficits noted. No signs and/or symptoms reported regarding the dermatologic system. Musculoskeletal: No deficits noted. No signs and/or symptoms reported regarding the musculoskeletal system. Historical: - Allergies: 20:20 No Known Allergies; vc1 - PMHx: 20:20 Hypertension; Obesity; Diabetes mellitus; vc1 - PSHx: 20:20 None; vc1 - Immunization history:: Client reports receiving the 2nd dose of the Covid vaccine, Pneumococcal vaccine is up to date, Flu vaccine is up to date. - Social history:: Smoking status: Patient denies any tobacco usage or history of. - Family history:: not pertinent. Screenin:08 [facility] ED Fall Risk Assessment (Adult) History of falling in the last 3 months, tm6 including since admission No falls in past 3 months (0 pts) Confusion or Disorientation No (0 pts) Intoxicated or Sedated No (0 pts) Impaired Gait No (0 pts) Mobility Assist Device Used No (0 pt) Altered Elimination No (0 pt) Score/Fall Risk Level 0 - 2 = Low Risk Oriented to surroundings, Maintained a safe environment. Abuse screen: Denies threats or abuse. Denies injuries from another. Nutritional screening: No deficits noted. Tuberculosis screening: No symptoms or risk factors identified. Assessment: 21:08 General: Appears in no apparent distress. Behavior is calm, cooperative. Pain: Denies tm6 pain. Neuro: Level of Consciousness is awake, alert, obeys commands, Oriented to person, place, time, situation, Reports dizziness. Cardiovascular: Denies lightheadedness, shortness of breath, Capillary refill < 3 seconds Patient's skin is warm and dry. Rhythm is sinus tachycardia. Respiratory: Airway is patent Respiratory effort is even, unlabored, Respiratory pattern is regular, symmetrical, Parent/caregiver reports the patient having shortness of breath at rest on exertion. GI: No signs and/or symptoms were reported involving the gastrointestinal system. GI: Abdomen is obese. : No signs and/or symptoms were reported regarding the genitourinary system. EENT: No signs and/or symptoms were reported regarding the EENT system. Derm: No signs and/or symptoms reported regarding the dermatologic system. Musculoskeletal: No signs and/or symptoms reported regarding the musculoskeletal system. 21:32 Reassessment: Patient and/or family updated on plan of care and expected duration. Pain tm6 level reassessed. Patient is alert, oriented x 3, equal unlabored respirations, skin warm/dry/pink. Pain: Complains of pain in face. 22:30 Reassessment: Patient and/or family updated on plan of care and expected duration. Pain tm6 level reassessed. Patient is alert, oriented x 3, equal unlabored respirations, skin warm/dry/pink. Vital Signs: 20:15 BP 140 / 79; Pulse 93; Resp 18; Temp 97.4; Pulse Ox 93% ; Weight 126.55 kg; Height 5 vc1 ft. 4 in. ; Pain 5/10; 21:31 BP 108 / 74; Pulse 92; Resp 14; Pulse Ox 96% on R/A; Pain 2/10; tm6 22:30 BP 138 / 80; Pulse 87; Pulse Ox 97% on R/A; Pain 0/10; tm6 23:06 BP 119 / 66; Pulse 88; Resp 16; Pulse Ox 100% on R/A; jb4 20:15 Body Mass Index 47.89 (126.55 kg, 162.56 cm) vc1 20:15 Pain Scale: Adult vc1 21:31 Pain Scale: Adult tm6 22:30 Pain Scale: Adult tm6 ED Course: 19:49 Patient arrived in ED. jj6 20:02 Faraz Del Angel MD is Attending Physician. sp4 20:20 Triage completed. vc1 20:20 Arm band placed on right wrist. vc1 20:44 Oneyda Smith RN is Primary Nurse. tm6 21:03 XRAY Chest (1 view) In Process Unspecified. EDMS 21:08 Patient has correct armband on for positive identification. Placed in gown. Bed in low tm6 position. Call light in reach. Side rails up X2. Provided Education on: plan of care. Client placed on continuous cardiac and pulse oximetry monitoring. NIBP monitoring applied. sales administration specialist on. Pulse ox on. NIBP on. Door closed. Noise minimized. Warm blanket given. 21:11 Urinalysis W/Microscopic Sent. tm6 21:13 CT Head Brain wo Cont In Process Unspecified. EDMS 21:31 Influenza Screen (a \T\ B) Sent. tm6 21:31 SARS RAPID Sent. tm6 21:31 Basic Metabolic Panel Sent. tm6 21:31 CBC with Diff Sent. tm6 21:31 LFT's Sent. tm6 21:31 Magnesium Sent. tm6 21:31 NT PRO-BNP Sent. tm6 21:31 PT-INR Sent. tm6 21:31 Troponin HS Sent. tm6 21:31 Inserted saline lock: 22 gauge in right antecubital area, using aseptic technique. tm6 22:36 Britt Curtis MD is Referral Physician. sp4 23:06 No provider procedures requiring assistance completed. IV discontinued, intact, jb4 bleeding controlled, No redness/swelling at site. Pressure dressing applied. Administered Medications: 21:30 Drug: Ondansetron PO 4 mg PO once Route: PO; tm6 21:30 Drug: Dextromethorphan-Guaifenesin PO Liquid 10 mg-100 mg/5 mL 10 ml PO once Route: PO; tm6 21:31 Drug: Ibuprofen PO 800 mg PO once Route: PO; tm6 21:31 Drug: Acetaminophen PO 1000 mg PO once Route: PO; tm6 Medication: 21:08 VIS not applicable for this client. tm6 Outcome: 22:37 Discharge ordered by . sp4 23:06 Discharged to home ambulatory, jb4 23:06 Condition: stable 23:06 Discharge instructions given to patient, Instructed on discharge instructions, follow up and referral plans. medication usage, Demonstrated understanding of instructions, follow-up care, medications, Prescriptions given X 2, 23:06 Patient left the ED. jb4 Signatures: Dispatcher [employer] EDMS Seth Jensen RN RN jb4 Cheryl [id number] Marya Cabral RN RN 1 Faraz Del Angel MD MD sp4 Oneyda Smith RN RN tm6
--- NOTE | 2023-09-21 22:37 | EDPHYS ---
Physician Documentation [facility] Name: Lidia Concepcion Age: 63 yrs Sex: Female : 1960 Arrival Date: 09/21/2023 Time: 19:46 Bed 6 Private MD: ED Physician Faraz Del Angel HPI: 09/20 20:02 This 63 yrs old Other Female presents to ER via Unassigned with complaints of sp4 Nausea/Vomiting. 20:22 63-year-old female with past medical history of morbid obesity hypertension and sp4 diabetes type 2 presents with 4 days of nausea, body aches, headache, shortness of breath, cough, loss of appetite, and overall feeling unwell. Historical: - Allergies: 20:20 No Known Allergies; vc1 - PMHx: 20:20 Hypertension; Obesity; Diabetes mellitus; vc1 - PSHx: 20:20 None; vc1 - Immunization history:: Client reports receiving the 2nd dose of the Covid vaccine, Pneumococcal vaccine is up to date, Flu vaccine is up to date. - Social history:: Smoking status: Patient denies any tobacco usage or history of. - Family history:: not pertinent. ROS: 20:22 Constitutional: Positive body aches, positive cough, positive headache, positive chest sp4 pains, positive loss of appetite, positive nausea, positive feeling unwell 20:22 All other systems are negative, Exam: 20:22 Constitutional: This is a well developed, well nourished patient who is awake, alert, sp4 and in no acute distress. Morbidly obese female Head/Face: Normocephalic, atraumatic. Eyes: Pupils equal round and reactive to light, extra-ocular motions intact. Lids and lashes normal. Conjunctiva and sclera are not injected. Cornea within normal limits. Periorbital areas with no swelling, redness, or edema. ENT: Nares patent. No nasal discharge, no septal abnormalities noted. Tympanic membranes are normal and external auditory canals are clear. Oropharynx with no redness, swelling, or masses, exudates, or evidence of obstruction, uvula midline. Mucous membranes moist. Neck: Trachea midline, no thyromegaly or masses palpated, and no cervical lymphadenopathy. Supple, full range of motion without nuchal rigidity, or vertebral point tenderness. Chest/axilla: Normal chest wall appearance and motion. Nontender with no deformity. No lesions are appreciated. Cardiovascular: Regular rate and rhythm with a normal S1 and S2. No gallops, murmurs, or rubs. Normal PMI, no JVD. No pulse deficits. Respiratory: Lungs have equal breath sounds bilaterally, clear to auscultation and percussion. No rales, rhonchi or wheezes noted. No increased work of breathing, no retractions or nasal flaring. Abdomen/GI: Soft, with normal bowel sounds. No distension or tympany. No guarding or rebound. No evidence of tenderness throughout. Back: No spinal tenderness. No costovertebral tenderness. Skin: Warm, dry with normal turgor. Normal color with no rashes, no lesions, and no evidence of cellulitis. MS/ Extremity: Pulses equal, no cyanosis. Neurovascular intact. Full, normal range of motion. Neuro: Awake and alert, GCS 15, oriented to person, place, time, and situation. Cranial nerves II-XII grossly intact. Motor strength 5/5 in all extremities. Sensory grossly intact. Psych: Awake, alert, with orientation to person, place and time. Behavior, mood, and affect are within normal limits 21:22 ECG was reviewed by the Attending Physician. 20: 18 sp4 Vital Signs: 20:15 BP 140 / 79; Pulse 93; Resp 18; Temp 97.4; Pulse Ox 93% ; Weight 126.55 kg; Height 5 vc1 ft. 4 in. ; Pain 5/10; 21:31 BP 108 / 74; Pulse 92; Resp 14; Pulse Ox 96% on R/A; Pain 2/10; tm6 22:30 BP 138 / 80; Pulse 87; Pulse Ox 97% on R/A; Pain 0/10; tm6 23:06 BP 119 / 66; Pulse 88; Resp 16; Pulse Ox 100% on R/A; jb4 20:15 Body Mass Index 47.89 (126.55 kg, 162.56 cm) vc1 20:15 Pain Scale: Adult vc1 21:31 Pain Scale: Adult tm6 22:30 Pain Scale: Adult tm6 MDM: 20:21 Patient medically screened. sp4 20:27 Differential diagnosis: Nonspecific abd pain, gastritis, pancreatitis, viral sp4 gastroenteritis, gastroenteritis. Data reviewed: vital signs, nurses notes. 22:33 ED course: EXAM DESCRIPTION: CT - Head Brain Wo Cont - 09/21/2023 9:11 pm CLINICAL sp4 HISTORY: Headache COMPARISON: none TECHNIQUE: Computed axial tomography of the head was obtained. IV contrast was not requested. All CT scans are performed using dose optimization technique as appropriate and may include automated exposure control or mA/KV adjustment according to patient size. FINDINGS: An intracranial bleed is not seen The ventricles are normal in caliber No significant hypodense areas within the brain visualized No extra-axial fluid collection is noted. Left maxillary sinuses completely opacified IMPRESSION: No acute intracranial abnormality is seen Complete opacification left maxillary sinus probably chronic sinusitis If patient's symptoms persist MRI of the brain would be recommended . ED course: EXAM DESCRIPTION: Marly Single View09/21/2023 9:01 pm CLINICAL HISTORY: Chest pain COMPARISON: none FINDINGS: The lungs appear clear of acute infiltrate. The heart is normal size IMPRESSION: No acute abnormalities displayed. . 09/20 20:20 Order name: Basic Metabolic Panel; Complete Time: : [facility] 09/20 20:20 Order name: CBC with Diff; Complete Time: : [facility] 09/20 20:20 Order name: LFT's; Complete Time: : [facility] 09/20 20:20 Order name: Magnesium; Complete Time: : [facility] 09/20 20:20 Order name: NT PRO-BNP; Complete Time: : [facility] 09/20 20:20 Order name: PT-INR [facility] 09/20 20:20 Order name: Troponin HS; Complete Time: 22: [facility] 09/20 20:20 Order name: SARS RAPID; Complete Time: 22: [facility] 09/20 20:20 Order name: Influenza Screen (a \T\ B); Complete Time: 22:25 [facility] 09/20 20:21 Order name: Urinalysis W/Microscopic; Complete Time: 22: [facility] 09/20 22:16 Order name: Urine Culture [facility] 09/20 20:20 Order name: XRAY Chest (1 view); Complete Time: : [facility] 09/20 20:20 Order name: CT Head Brain wo Cont; Complete Time: 22:25 [facility] 09/20 20:20 Order name: EKG; Complete Time: 20:20 [facility] 09/20 20:20 Order name: Cardiac monitoring; Complete Time: : sp4 09/20 20:20 Order name: EKG - Nurse/Tech; Complete Time: : sp4 09/20 20:20 Order name: IV Saline Lock; Complete Time: sp4 09/20 20:20 Order name: Labs collected and sent; Complete Time: : sp4 09/20 20:20 Order name: O2 Per Protocol; Complete Time: sp4 09/20 20:20 Order name: O2 Sat Monitoring; Complete Time: : sp4 EC: Rate is 96 beats/min. Rhythm is regular, Normal Sinus Rhythm. QRS [place] is Normal. SD sp4 interval is normal. QRS interval is normal. QT interval is normal. No Q waves. T waves are Normal. No ST changes noted. Clinical impression: Normal ECG. Interpreted by me. Reviewed by me. Administered Medications: 21:30 Drug: Ondansetron PO 4 mg PO once Route: PO; tm6 21:30 Drug: Dextromethorphan-Guaifenesin PO Liquid 10 mg-100 mg/5 mL 10 ml PO once Route: PO; tm6 21:31 Drug: Ibuprofen PO 800 mg PO once Route: PO; tm6 21:31 Drug: Acetaminophen PO 1000 mg PO once Route: PO; tm6 Disposition Summary: 09/21/23 22:37 Discharge Ordered Notes: Location: Home sp4 Problem: new sp4 Symptoms: have improved sp4 Condition: Stable sp4 Diagnosis - UTI/ Urinary tract infection, site not specified sp4 - Left maxillary sinusitis, chronic sinusitis, acute systemic viral illness, Common sp4 cold Followup: sp4 - With: Britt Curtis MD - When: 7 - 10 days - Reason: Recheck today's complaints Discharge Instructions: - Discharge Summary Sheet sp4 - Sinusitis, Adult, [id number] sp4 Forms: - Patient Portal Instructions sp4 Prescriptions: - dextromethorphan-guaifenesin 60-1,200 mg Oral Tablet, Extended Release 12 hr - take 1 tablet ORAL route every 12 hours; 40 tablet; Refills: 0, Product sp4 Selection Permitted - Cephalexin 500 mg Oral Capsule - take 1 capsule ORAL route every 12 hours for 10 days; 20 capsule; Refills: 0, sp4 Product Selection Permitted Signatures: Dispatcher [employer] EDGA Calcote, Marya, RN RN vc1 Faraz Del Angel MD MD sp4 Oneyda Smith RN RN tm6
[2023-09-21 23:38] VITALS: BP 119/66; TEMP 97.4; O2SAT 100
== END ==
LOC: ER 19:46
DX: N39.0 Urinary tract infection, site not specified (principal); J32.0 Chronic maxillary sinusitis; J00 Acute nasopharyngitis [common cold]; B34.9 Viral infection, unspecified; I10 Essential (primary) hypertension; E66.9 Obesity, unspecified; Z68.42 Body mass index [BMI] 45.0-49.9, adult; Z11.52 Encounter for screening for COVID-19
CPT/HCPCS: 87088; 85025; 81001; 87086; 80048; 36415; 83735; 85610; 80076; 84484; 83880; 87804 ×2; 70450; 71045; 87811; Q0162; 93005

== ENCOUNTER 2023-09-24 20:52 | Emergency (ER) | payer OTHER ==
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
[2023-09-24] MEDS ORDERED: IBUPROFEN 200 MG TAB PO ONE (21:56)
[2023-09-24] MEDS ORDERED: predniSONE 20 MG TAB ONE (21:56)
[2023-09-24] MEDS ORDERED: IBUPROFEN 400 MG TAB ONE (21:56)
[2023-09-24] MEDS ORDERED: SMZ./TMP. 800/160 MG TABLET ONE (21:56)
--- NOTE | 2023-09-24 22:00 | ER ---
Nurse's Notes [facility] Name: Lidia Concepcion Age: 63 yrs Sex: Female : 1960 Arrival Date: 09/24/2023 Time: 20:52 Bed 6 Private MD: Mario Alcaraz Diagnosis: UTI/ Urinary tract infection, site not specified;Acute frontal sinusitis;Acute maxillary sinusitis;Influenza due to unidentified influenza virus with other respiratory manifestations-FLU B Presentation: 09/23 21:31 Chief complaint: Patient states: sinus pressure, neck and back pain. Coronavirus as6 screen: At this time, the client does not indicate any symptoms associated with coronavirus-19. Ebola Screen: No symptoms or risks identified at this time. Initial Sepsis Screen: Does the patient meet any 2 criteria? No. Patient's initial sepsis screen is negative. Does the patient have a suspected source of infection? No. Patient's initial sepsis screen is negative. Risk Assessment: Do you want to hurt yourself or someone else? Patient reports no desire to harm self or others. Onset of symptoms was September 23, 2023. 21:31 Method Of Arrival: Ambulatory as6 21:31 Acuity: DIANA 4 as6 Historical: - Allergies: 21:33 No Known Allergies; as6 - PMHx: 21:33 diabetes mellitus; Hypertension; Obesity; as6 - PSHx: 21:33 back; knee; arm; as6 - Immunization history:: Adult Immunizations up to date. - Social history:: Smoking status: Patient/guardian denies using tobacco. Screenin:18 [facility] ED Fall Risk Assessment (Adult) History of falling in the last 3 months, tm6 including since admission No falls in past 3 months (0 pts) Confusion or Disorientation No (0 pts) Intoxicated or Sedated No (0 pts) Impaired Gait No (0 pts) Mobility Assist Device Used No (0 pt) Altered Elimination No (0 pt) Score/Fall Risk Level 0 - 2 = Low Risk Oriented to surroundings, Maintained a safe environment. Abuse screen: Denies threats or abuse. Denies injuries from another. Nutritional screening: No deficits noted. Tuberculosis screening: No symptoms or risk factors identified. Assessment: 22:18 General: Appears in no apparent distress. Behavior is calm, cooperative. Pain: tm6 Complains of pain in neck, back Pain currently is 5 out of 10 on a pain scale. Quality of pain is described as aching. Neuro: Level of Consciousness is awake, alert, obeys commands, Oriented to person, place, time, situation, Reports headache in left. Cardiovascular: Patient's skin is warm and dry. Respiratory: Airway is patent Respiratory effort is even, unlabored, Respiratory pattern is regular, symmetrical. GI: No signs and/or symptoms were reported involving the gastrointestinal system. Abdomen is obese. : No signs and/or symptoms were reported regarding the genitourinary system. EENT: Reports nasal congestion. Derm: No signs and/or symptoms reported regarding the dermatologic system. Musculoskeletal: Reports pain in neck and back. 23:01 Reassessment: Patient appears in no apparent distress at this time. Patient and/or jb4 family updated on plan of care and expected duration. Pain level reassessed. Patient is alert, oriented x 3, equal unlabored respirations, skin warm/dry/pink. Vital Signs: 21:31 BP 136 / 75; Pulse 98; Resp 18 S; Temp 97.9; Pulse Ox 95% on R/A; Weight 128.82 kg (R); as6 Height 5 ft. 4 in. (R); Pain 6/10; 21:31 Body Mass Index 48.75 (128.82 kg, 162.56 cm) as6 21:31 Pain Scale: Adult as6 ED Course: 20:54 Patient arrived in ED. gm2 20:54 Mario Alcaraz DO is Private Physician. gm2 21:08 Blade Peterson MD is Attending Physician. una 21:30 Arm band placed on. as6 21:33 Triage completed. as6 21:36 Oneyda Smith, ANDRE is Primary Nurse. tm6 21:53 Strep Sent. tm6 21:53 SARS RAPID Sent. tm6 21:53 Flu Sent. tm6 21:59 Mario Alcaraz DO is Referral Physician. una 22:18 Patient has correct armband on for positive identification. Placed in gown. Bed in low tm6 position. Call light in reach. Side rails up X2. Provided Education on: plan of care. Client placed on continuous cardiac and pulse oximetry monitoring. NIBP monitoring applied. Pulse ox on. NIBP on. Door closed. Noise minimized. Lights dimmed. Warm blanket given. PO fluids given. 23:01 No provider procedures requiring assistance completed. Patient did not have IV access jb4 during this emergency room visit. Administered Medications: 21:53 CANCELLED (Duplicate Order): [id number] mg PO once una 21:59 Drug: predniSONE PO 40 mg PO once Route: PO; tm6 21:59 Drug: Ibuprofen PO 600 mg PO once Route: PO; tm6 21:59 Drug: Trimethoprim-Sulfamethoxazole PO (160 mg-800 mg (DS) 1 tablet PO once Route: PO; tm6 23:01 Drug: Oseltamivir PO 75 mg PO once Route: PO; jb4 23:01 Follow up: Response: Medication administered at discharge. jb4 Medication: 22:18 VIS not applicable for this client. tm6 Outcome: :59 Discharge ordered by . una 23:01 Discharged to home ambulatory, with family, jb4 23:01 Condition: stable 23:01 Discharge instructions given to patient, Instructed on discharge instructions, follow up and referral plans. medication usage, Demonstrated understanding of instructions, follow-up care, medications, Prescriptions given X 3, 23:01 Patient left the ED. jb4 Signatures: Blade Peterson MD MD cha Bryson, James, RN RN jb4 Carlos A Lozano, RN RN as6 Tana Atkins 2 Oneyda Smith, RN RN tm6
--- NOTE | 2023-09-24 22:00 | EDPHYS ---
Physician Documentation [facility] Name: Lidia Concepcion Age: 63 yrs Sex: Female : 1960 Arrival Date: 09/24/2023 Time: 20:52 Bed 6 Private MD: Mario Alcaraz ED Physician Blade Peterson HPI: 09/23 21:52 This 63 yrs old Female presents to ER via Ambulatory with complaints of Sinus una Pain. 21:52 The patient or guardian reports cough. Severity of symptoms: At their worst the una symptoms were mild, in the emergency department the symptoms are unchanged. Historical: - Allergies: 21:33 No Known Allergies; as6 - PMHx: 21:33 diabetes mellitus; Hypertension; Obesity; as6 - PSHx: 21:33 back; knee; arm; as6 - Immunization history:: Adult Immunizations up to date. - Social history:: Smoking status: Patient/guardian denies using tobacco. ROS: 21:55 Constitutional: Negative for fever, chills, and weight loss, Eyes: Negative for injury, una pain, redness, and discharge, Neck: Negative for injury, pain, and swelling, Cardiovascular: Negative for chest pain, palpitations, and edema, Respiratory: Negative for shortness of breath, cough, wheezing, and pleuritic chest pain, Abdomen/GI: Negative for abdominal pain, nausea, vomiting, diarrhea, and constipation, Back: Negative for injury and pain, : Negative for injury, bleeding, discharge, and swelling, MS/Extremity: Negative for injury and deformity, Skin: Negative for injury, rash, and discoloration, Neuro: Negative for headache, weakness, numbness, tingling, and seizure, Psych: Negative for depression, anxiety, suicide ideation, homicidal ideation, and hallucinations, Allergy/Immunology: Negative for hives, rash, and allergies, Endocrine: Negative for neck swelling, polydipsia, polyuria, polyphagia, and marked weight changes, Hematologic/Lymphatic: Negative for swollen nodes, abnormal bleeding, and unusual bruising, 21:55 ENT: Positive for nasal discharge, sinus congestion, sinus pain, Exam: 21:55 Constitutional: This is a well developed, well nourished patient who is awake, alert, una and in no acute distress. Head/Face: Normocephalic, atraumatic. Eyes: Pupils equal round and reactive to light, extra-ocular motions intact. Lids and lashes normal. Conjunctiva and sclera are non-icteric and not injected. Cornea within normal limits. Periorbital areas with no swelling, redness, or edema. Neck: Trachea midline, no thyromegaly or masses palpated, and no cervical lymphadenopathy. Supple, full range of motion without nuchal rigidity, or vertebral point tenderness. No Meningismus. Chest/axilla: Normal chest wall appearance and motion. Nontender with no deformity. No lesions are appreciated. Cardiovascular: Regular rate and rhythm with a normal S1 and S2. No gallops, murmurs, or rubs. Normal PMI, no JVD. No pulse deficits. Respiratory: Lungs have equal breath sounds bilaterally, clear to auscultation and percussion. No rales, rhonchi or wheezes noted. No increased work of breathing, no retractions or nasal flaring. Abdomen/GI: Soft, non-tender, with normal bowel sounds. No distension or tympany. No guarding or rebound. No evidence of tenderness throughout. Back: No spinal tenderness. No costovertebral tenderness. Full range of motion. Skin: Warm, dry with normal turgor. Normal color with no rashes, no lesions, and no evidence of cellulitis. MS/ Extremity: Pulses equal, no cyanosis. Neurovascular intact. Full, normal range of motion. Neuro: Awake and alert, GCS 15, oriented to person, place, time, and situation. Cranial nerves II-XII grossly intact. Motor strength 5/5 in all extremities. Sensory grossly intact. Cerebellar exam normal. Normal gait. Psych: Awake, alert, with orientation to person, place and time. Behavior, mood, and affect are within normal limits. 21:55 ENT: Nose: External nose: no obvious acute abnormality, Nasal septum: is midline, Nasal mucosa: normal, Mouth: is normal, no acute changes, Posterior pharynx: is normal, no acute changes, Vital Signs: 21:31 BP 136 / 75; Pulse 98; Resp 18 S; Temp 97.9; Pulse Ox 95% on R/A; Weight 128.82 kg (R); as6 Height 5 ft. 4 in. (R); Pain 6/10; 21:31 Body Mass Index 48.75 (128.82 kg, 162.56 cm) as6 21:31 Pain Scale: Adult as6 MDM: 21:08 Patient medically screened. una 21:57 Differential diagnosis: urinary tract infection. Differential Diagnosis: Obstructed una Airway Bronchitis Upper Respiratory Infection Pharyngitis Otitis Media Pneumonia. Data reviewed: vital signs, nurses notes, lab test result(s), Flu: negative. Consideration of Admission/Observation Escalation of care including admission/observation considered. I considered the following discharge prescriptions or medication management in the emergency department Medications were administered in the Emergency Department. See MAR. Independent interpretation of the following test(s) in the Emergency Department CT Scan: My interpretation is ct head reviewed. Test considered but Not performed: Labs: no cbc comp met. Historians other than the Patient: patient well informed. Care significantly affected by the following chronic conditions: Diabetes, Hypertension, Obesity. 09/23 21:09 Order name: Flu; Complete Time: 22:[address] [facility] 09/23 21:09 Order name: SARS RAPID; Complete Time: 22:[address] [facility] 09/23 21:09 Order name: Strep; Complete Time: 22:[address] [facility] 09/23 22:14 Order name: Throat Culture EDMS Administered Medications: 21:53 CANCELLED (Duplicate Order): [id number] mg PO once una 21:59 Drug: predniSONE PO 40 mg PO once Route: PO; tm6 21:59 Drug: Ibuprofen PO 600 mg PO once Route: PO; tm6 21:59 Drug: Trimethoprim-Sulfamethoxazole PO (160 mg-800 mg (DS) 1 tablet PO once Route: PO; tm6 23:01 Drug: Oseltamivir PO 75 mg PO once Route: PO; jb4 23:01 Follow up: Response: Medication administered at discharge. jb4 Disposition Summary: 09/24/23 21:59 Discharge Ordered Notes: Location: Home [facility] Problem: new una Symptoms: have improved una Condition: Stable una Diagnosis - UTI/ Urinary tract infection, site not specified uan - Acute frontal sinusitis una - Acute maxillary sinusitis una - Influenza due to unidentified influenza virus with other respiratory manifestations una - FLU B Followup: una - With: Mario Alcaraz DO - When: 2 - 3 days - Reason: Recheck today's complaints, Continuance of care, Re-evaluation by your physician Discharge Instructions: - Discharge Summary Sheet una - Dysuria una - Influenza, Adult una - Sinusitis, Adult una - Urinary Tract Infection, Adult [facility] - Sinusitis, Adult, [id number]-Mvep [facility] - Urinary Tract Infection, Adult, Bbie-aa-[id number] [facility] - Influenza, Adult, [id number] [facility] Forms: - Medication Reconciliation Form [facility] - Thank You Letter [facility] - Antibiotic Education [facility] - Prescription Opioid Use [facility] - Patient Portal Instructions [facility] - Leadership Thank You Letter [facility] Prescriptions: - Medrol (Geremias) 4 mg Oral Tablets, Dose Pack - take 1 tablet ORAL route as directed - follow package instructions; 1 packet; [facility] Refills: 0, Product Selection Permitted - Bactrim DS 800-160 mg Oral Tablet - take 1 tablet ORAL route every 12 hours for 10 days; 20 tablet; Refills: 0, [facility] Product Selection Permitted - Tamiflu 75 mg Oral capsule - take 1 tablet ORAL route every 12 hours for 5 days; 10 tablet; Refills: 0, [facility] Product Selection Permitted Signatures: Dispatcher [employer] EDBlade Mena MD MD cha Bryson, James, RN RN jb4 Carlos A Lozano RN RN as6 Oneyda Smith RN RN tm6 Corrections: (The following items were deleted from the chart) 21:09 21:09 Influenza Screen (A \T\ B)+BA.LAB.BRZ ordered. EDMS EDMS 21: 21:09 SARS-COV-2 Antigen Rapid+I.LAB.BRZ ordered. EDMS EDMS 21:09 21:09 Group A Streptococcus Rapid Sc+BA.LAB.BRZ ordered. EDMI EDMS 21:53 21:51 LevOfloxacin PO 750 mg PO once ordered. [facility]
[2023-09-24 22:16] LABS: SARS-CoV-2 Antigen CONTROL BLUE LINE VIS/BG OK; SARS-CoV-2 Antigen Rapid Res Negative (Negative)
[2023-09-24] MEDS ORDERED: OSELTAMIVIR 75 MG CAP PO ONE (22:53)
[2023-09-25 01:57] VITALS: BP 136/75; TEMP 97.9; O2SAT 95
== END 2023-09-24 23:01 | disposition home or self-care (01) ==
LOC: ER 20:52
DX: J11.1 Influenza due to unidentified influenza virus with other respiratory manifestations (principal); J01.10 Acute frontal sinusitis, unspecified; J01.00 Acute maxillary sinusitis, unspecified; N39.0 Urinary tract infection, site not specified; E11.9 Type 2 diabetes mellitus without complications; I10 Essential (primary) hypertension; Z11.52 Encounter for screening for COVID-19
CPT/HCPCS: 87070; 36415; 87081; 87804 ×2; 99284; 87811; J7512

== ENCOUNTER 2023-09-28 09:25 | Inpatient (IN) | payer OTHER ==
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
[2023-09-28] MEDS ORDERED: NA CHLORIDE 0.9% 500 ML ONE (09:50)
[2023-09-28] MEDS ORDERED: MAGNESIUM SULFATE 1 gm IVPB 1 GM/100 ML BAG IV ONE (09:50)
[2023-09-28 10:15] LABS: Absolute Lymphocytes (CBC) 1.3 K/uL (0.7-4.9); Absolute Monocytes 0.5 K/uL (0.1-1.3); Absolute Neutrophil 9.1 K/uL (1.8-8.0); Basophils % 0.4 % (0-1.3); Eosinophils % 0.1 % (0-4.4); Hematocrit 41.1 % (36.0-45.0); Hemoglobin 13.5 g/dL (12.0-15.0); Lymphocytes % 11.6 % (15.3-44.8); MCH 29.7 pg (27.0-35.0); MCV 90.1 fL (80-100); MPV 9.3 fL (7.6-11.3); Monocytes % 4.8 % (3.3-12.3); Neutrophils % 83.1 % (41.7-73.7); Platelets 346 thou/uL (152-406); RBC Red Blood Cell Count 4.56 M/uL (3.86-4.86); Red Cell Distribution Width 15.1 % (12.1-15.2)
[2023-09-28 10:24] LABS: PT Prothrombin Time 12.8 SECONDS (9.5-12.5); Protime INR 1.17
[2023-09-28 10:32] LABS: Specific Gravity 1.006 (1.005-1.030); Sqamous Epithelial <5 /HPF (None Seen); Urine Bacteria None Seen /HPF (<20); Urine Bilirubin NEGATIVE (Negative); Urine Blood Negative (Negative); Urine Clarity Turbid (Clear); Urine Color Colorless (Yellow); Urine Culture Reflex Order NOT NEEDED; Urine Glucose NEGATIVE (Negative); Urine Ketones NEGATIVE (Negative); Urine Microscopic Reflex YN ORDER UMIC; Urine Mucus Slight /HPF (None Seen); Urine Nitrite NEGATIVE (Negative); Urine Protein NEGATIVE (Negative); Urine RBC None Seen /HPF (None Seen); Urine Urobilinogen Normal (Normal); Urine WBC <5 /HPF (<5)
--- NOTE | 2023-09-28 10:38 | RAD REPORT ---
EXAM DESCRIPTION: RAD - Chest Single View - 09/28/2023 10:14 am CLINICAL HISTORY: COUGH Chest pain. COMPARISON: Chest Single View dated 09/21/2023 FINDINGS: Portable technique limits examination quality. Mild interstitial pulmonary edema suspected. The heart is normal in size. No displaced fractures. IMPRESSION: Mild CHF is possible.
[2023-09-28 10:39] LABS: Albumin 3.6 g/dL (3.4-5.0); Albumin/Globulin Ratio 0.8 (1.1-1.8); Anion Gap 11.4 mEq/L (5.0-15.0); Bilirubin Direct 0.3 mg/dL (0-0.2); Bilirubin Indirect, Calculated 0.5 mg/dL (0.2-0.8); Bilirubin Total 0.8 mg/dL (0.2-1.0); Globulin 4.6 g/dL (2.3-3.5); Magnesium 1.4 mg/dL (1.6-2.4); Potassium 3.4 mEq/L (3.5-5.1); Protein, Total 8.2 g/dL (6.4-8.2); Thyroid Stimulating Hormone 1.67 uIU/mL (0.358-3.740); Troponin High Sensitivity 3.7 pg/mL (<58.9)
--- NOTE | 2023-09-28 11:00 | EDPHYS ---
Physician Documentation [facility] Name: Lidia Concepcion Age: 63 yrs Sex: Female : 1960 Arrival Date: 09/28/2023 Time: 09:25 Bed 6 Private MD: VICTOR HUGO Physician Blade Peterson HPI: 09/27 10:33 This 63 yrs old Female presents to ER via Ambulatory with complaints of una Palpitations, Doesn't Feel Right. Historical: - Allergies: 09:53 No Known Allergies; ap3 - PMHx: 09:53 diabetes mellitus; Hypertension; Obesity; ap3 - PSHx: 09:53 arm; back; knee; ap3 - Immunization history:: Client reports receiving the 2nd dose of the Covid vaccine, Flu vaccine is up to date. - Infectious Disease History:: Denies. - Social history:: Smoking status: Patient denies any tobacco usage or history of. ROS: 10:55 Constitutional: Negative for fever, chills, and weight loss, Eyes: Negative for injury, una pain, redness, and discharge, ENT: Negative for injury, pain, and discharge, Neck: Negative for injury, pain, and swelling, Respiratory: Negative for shortness of breath, cough, wheezing, and pleuritic chest pain, Abdomen/GI: Negative for abdominal pain, nausea, vomiting, diarrhea, and constipation, Back: Negative for injury and pain, : Negative for injury, bleeding, discharge, and swelling, MS/Extremity: Negative for injury and deformity, Skin: Negative for injury, rash, and discoloration, Neuro: Negative for headache, weakness, numbness, tingling, and seizure, Psych: Negative for depression, anxiety, suicide ideation, homicidal ideation, and hallucinations, Allergy/Immunology: Negative for hives, rash, and allergies, Endocrine: Negative for neck swelling, polydipsia, polyuria, polyphagia, and marked weight changes, Hematologic/Lymphatic: Negative for swollen nodes, abnormal bleeding, and unusual bruising, 10:55 Cardiovascular: Positive for chest pain, palpitations, Exam: 10:55 Constitutional: This is a well developed, well nourished patient who is awake, alert, una and in no acute distress. Head/Face: Normocephalic, atraumatic. Eyes: Pupils equal round and reactive to light, extra-ocular motions intact. Lids and lashes normal. Conjunctiva and sclera are non-icteric and not injected. Cornea within normal limits. Periorbital areas with no swelling, redness, or edema. ENT: Nares patent. No nasal discharge, no septal abnormalities noted. Tympanic membranes are normal and external auditory canals are clear. Oropharynx with no redness, swelling, or masses, exudates, or evidence of obstruction, uvula midline. Mucous membranes moist. Neck: Trachea midline, no thyromegaly or masses palpated, and no cervical lymphadenopathy. Supple, full range of motion without nuchal rigidity, or vertebral point tenderness. No Meningismus. Chest/axilla: Normal chest wall appearance and motion. Nontender with no deformity. No lesions are appreciated. Cardiovascular: Regular rate and rhythm with a normal S1 and S2. No gallops, murmurs, or rubs. Normal PMI, no JVD. No pulse deficits. Respiratory: Lungs have equal breath sounds bilaterally, clear to auscultation and percussion. No rales, rhonchi or wheezes noted. No increased work of breathing, no retractions or nasal flaring. Abdomen/GI: Soft, non-tender, with normal bowel sounds. No distension or tympany. No guarding or rebound. No evidence of tenderness throughout. Back: No spinal tenderness. No costovertebral tenderness. Full range of motion. Skin: Warm, dry with normal turgor. Normal color with no rashes, no lesions, and no evidence of cellulitis. MS/ Extremity: Pulses equal, no cyanosis. Neurovascular intact. Full, normal range of motion. Neuro: Awake and alert, GCS 15, oriented to person, place, time, and situation. Cranial nerves II-XII grossly intact. Motor strength 5/5 in all extremities. Sensory grossly intact. Cerebellar exam normal. Normal gait. Psych: Awake, alert, with orientation to person, place and time. Behavior, mood, and affect are within normal limits. 10:55 ECG was reviewed by the Attending Physician. Vital Signs: 09:50 BP 132 / 78; Pulse 104; Resp 19; Temp 98.3; Pulse Ox 97% ; Weight 126.55 kg; Height 5 ap3 ft. 4 in. ; 10:15 BP 125 / 80; Pulse 90; Resp 17; Pulse Ox 98% on R/A; rs5 11:20 BP 128 / 76; Pulse 94; Resp 18; Pulse Ox 98% on R/A; rs5 09:50 Body Mass Index 47.89 (126.55 kg, 162.56 cm) ap3 Ramos Coma Score: 10:55 Eye Response: spontaneous(4). Motor Response: obeys commands(6). Verbal Response: una oriented(5). Total: 15. MDM: 09:31 Patient medically screened. una 10:57 GRAY Risk Score: 1 - Patient's age is greater or equal to 65, 1 - 3 or more CAD risk una factors, [Family HX] [HTN] [Elevated Cholesterol] [DM] 1 - Known CAD, 1 - ASA use in past 7 days, 1 - Recent [<24 hrs] Severe Angina. Differential diagnosis: arrythmia, dehydration, stress disorder. Data reviewed: vital signs, nurses notes, lab test result(s), EKG, radiologic studies, CT scan, plain films. Consideration of Admission/Observation Patient was admitted/placed on observation. Escalation of care including admission/observation considered. I considered the following discharge prescriptions or medication management in the emergency department Medications were administered in the Emergency Department. See MAR. Independent interpretation of the following test(s) in the Emergency Department EKG: See my EKG interpretation above. Test considered but Not performed: Ultrasound NO 2 D ECHO IN ED. Care significantly affected by the following chronic conditions: Diabetes, Hypertension, Obesity. 09/27 09:32 Order name: Basic Metabolic Panel; Complete Time: 10:55 una 09/27 09:32 Order name: CBC with Diff; Complete Time: 10:33 una 09/27 09:32 Order name: LFT's; Complete Time: 10:55 una 09/27 09:32 Order name: Magnesium; Complete Time: 10:55 una 09/27 09:32 Order name: NT PRO-BNP; Complete Time: 10:55 una 09/27 09:32 Order name: PT-INR; Complete Time: 10:33 una 09/27 09:32 Order name: Troponin HS; Complete Time: 10:55 una 09/27 09:32 Order name: TSH; Complete Time: 10:55 una 09/27 09:32 Order name: Lipase; Complete Time: 10:55 una 09/27 09:32 Order name: Urinalysis w/ reflexes; Complete Time: 10:33 una 09/27 12:18 Order name: Urinalysis w/ reflexes [facility] 09/27 12:18 Order name: Basic Metabolic Panel [facility] 09/27 12:18 Order name: Basic Metabolic Panel [facility] 09/27 12:18 Order name: CBC with Automated Diff EDMS 09/27 12:18 Order name: CBC with Automated Diff EDMS 09/27 12:18 Order name: Lipid Profile [facility] 09/27 12:18 Order name: Lipid Profile [facility] 09/27 12:18 Order name: Magnesium [facility] 09/27 12:18 Order name: Magnesium EDMS 09/27 12:18 Order name: Troponin High Sensitivity [facility] 09/27 12:18 Order name: Troponin High Sensitivity [facility] 09/27 12:18 Order name: Troponin High Sensitivity [facility] 09/27 12:18 Order name: Troponin High Sensitivity [facility] 09/27 09:32 Order name: XRAY Chest (1 view); Complete Time: 10:55 [facility] 09/27 10:35 Order name: CT Aorta for Dissection [facility] 09/27 09:32 Order name: EKG; Complete Time: 09:33 [facility] 09/27 12:14 Order name: CONS Physician Consult [facility] 09/27 09:32 Order name: Cardiac monitoring; Complete Time: 10:07 [facility] 09/27 09:32 Order name: EKG - Nurse/Tech; Complete Time: 10:07 [facility] 09/27 09:32 Order name: IV Saline Lock; Complete Time: 10:07 [facility] 09/27 09:32 Order name: Labs collected and sent; Complete Time: 10:07 [facility] 09/27 09:32 Order name: O2 Per Protocol; Complete Time: 09:55 [facility] 09/27 09:32 Order name: O2 Sat Monitoring; Complete Time: 09:55 [facility] EC:55 Rate is 108 beats/min. Rhythm is regular. QRS Leslie is Normal. AL interval is normal. [facility] QRS interval is normal. QT interval is normal. No Q waves. T waves are Normal. No ST changes noted. Clinical impression: Sinus tachycardia and No evidence of ischemia. Interpreted by me. Reviewed by me. Administered Medications: 10:06 Drug: NS 0.9% IV 500 ml IV at bolus once Route: IV; Rate: bolus; Site: right mb9 antecubital; 10:30 Follow up: Response: No adverse reaction rs5 10:12 Drug: Magnesium Sulfate IVPB 1 grams IVPB once over 1 hrs Route: IVPB; Infused Over: 1 mb9 hrs; Site: right antecubital; 10:30 Follow up: Response: No adverse reaction rs5 11:27 Drug: Magnesium Sulfate IVPB 2 grams IVPB once over 2 hrs Route: IVPB; Infused Over: 2 rs5 hrs; Site: left antecubital; 11:54 Follow up: Response: No adverse reaction rs5 11:27 Drug: Potassium PO Effervescent Tablet 25 mEq PO once; dissolve in 4 ounces of water or rs5 juice Route: PO; 11:54 Follow up: Response: No adverse reaction rs5 11:30 Drug: Metoprolol PO 25 mg PO once Route: PO; rs5 11:54 Follow up: Response: No adverse reaction rs5 Disposition Summary: 09/28/23 10:59 Hospitalization Ordered Notes: Hospitalization Status: Observation una Provider: Emily Wren una Condition: Stable una Problem: new una Symptoms: have improved una Bed/Room Type: Standard una Location: Telemetry/MedSurg (observation)(09/28/23 14:56) bd Room Assignment: 425(09/28/23 15:05) bd Diagnosis - Palpitations una - Tachycardia, unspecified una - Obesity, unspecified una - Hypokalemia una - Hypomagnesemia una - Type 2 diabetes mellitus with hyperglycemia una Forms: - Medication Reconciliation Form una - SBAR form uan - Leadership Thank You Letter una Signatures: Dispatcher [employer] EDMS Jaycee La Corey, MD MD cha Prokisch, Amanda RN RN ap3 Elida Carpio RN RN kb3 Jaida Quiles RN RN mb9 Larry Lay, ANDRE RN rs5 Corrections: (The following items were deleted from the chart) 09:33 09:33 BASIC METABOLIC PANEL+C.LAB.BRZ ordered. EDMS EDMS 09:33 09:33 CBC+H.LAB.BRZ ordered. EDMS EDMS 09:33 09:33 HEPATIC FUNCTION+C.LAB.BRZ ordered. EDMS EDMS 09:33 09:33 MAGNESIUM+C.LAB.BRZ ordered. EDMS EDMS 09:33 09:33 PROBNP+C.LAB.BRZ ordered. EDMS EDMS 09:33 09:33 PROTIME (+INR)+COAG.LAB.BRZ ordered. EDMS EDMS 09:33 09:33 Troponin High Sensitivity+C.LAB.BRZ ordered. EDMS EDMS 09:33 09:33 THYROID STIMULAT HORMONE+C.LAB.BRZ ordered. EDMS EDMS 09:33 09:33 LIPASE+C.LAB.BRZ ordered. EDMS EDMS 09:33 09:33 Urinalysis+U.LAB.BRZ ordered. EDMS EDMS 10:35 10:35 Angio Aorta For Dissection+CT.RAD.BRZ ordered. EDMS EDMS 12:44 10:59 Telemetry/MedSurg (observation) una kb3 12:44 10:59 una kb3 14:56 12:44 BR ER HOLD kb3 bd 14:56 12:44 ERHOLD- kb3 bd 15:05 14:56 410 bd bd
--- NOTE | 2023-09-28 11:00 | ER ---
Nurse's Notes [facility] Name: Lidia Concepcion Age: 63 yrs Sex: Female : 1960 Arrival Date: 09/28/2023 Time: 09:25 Bed 6 Private MD: Diagnosis: Palpitations;Tachycardia, unspecified;Obesity, unspecified;Hypokalemia;Hypomagnesemia;Type 2 diabetes mellitus with hyperglycemia Presentation: 09/27 09:50 Chief complaint: Patient states: she started taking oseltamivir Tuesday09/24/23, and ap3 every time she takes it, she starts feeling like she has heart palpitations with pain and tingling to the back and neck. Coronavirus screen: At this time, the client does not indicate any symptoms associated with coronavirus-19. Ebola Screen: No symptoms or risks identified at this time. Initial Sepsis Screen: Does the patient meet any 2 criteria? HR > 90 bpm. Does the patient have a suspected source of infection? No. Patient's initial sepsis screen is negative. Risk Assessment: Do you want to hurt yourself or someone else? Patient reports no desire to harm self or others. Onset of symptoms was September 24, 2023. 09:50 Method Of Arrival: Ambulatory ap3 09:50 Acuity: DIANA 3 ap3 Triage Assessment: :53 General: Appears in no apparent distress. Behavior is calm, cooperative, appropriate ap3 for age. Pain: Complains of pain in back and chest. Neuro: Level of Consciousness is awake, alert, obeys commands, Oriented to person, place, time, situation. Cardiovascular: Reports palpitations, Patient's skin is warm and dry. Respiratory: Airway is patent Respiratory effort is even, unlabored, Respiratory pattern is regular, symmetrical. Historical: - Allergies: 09:53 No Known Allergies; ap3 - PMHx: 09:53 diabetes mellitus; Hypertension; Obesity; ap3 - PSHx: 09:53 arm; back; knee; ap3 - Immunization history:: Client reports receiving the 2nd dose of the Covid vaccine, Flu vaccine is up to date. - Infectious Disease History:: Denies. - Social history:: Smoking status: Patient denies any tobacco usage or history of. Screenin:45 [facility] ED Fall Risk Assessment (Adult) History of falling in the last 3 months, rs5 including since admission No falls in past 3 months (0 pts) Confusion or Disorientation No (0 pts) Intoxicated or Sedated No (0 pts) Impaired Gait No (0 pts) Mobility Assist Device Used No (0 pt) Altered Elimination No (0 pt) Score/Fall Risk Level 0 - 2 = Low Risk Oriented to surroundings, Maintained a safe environment. 09:54 Abuse screen: Denies threats or abuse. Nutritional screening: No deficits noted. ap3 Tuberculosis screening: No symptoms or risk factors identified. Assessment: 09:45 General: Appears in no apparent distress. uncomfortable, Behavior is calm, cooperative. rs5 Pain: Denies pain. Neuro: Level of Consciousness is awake, alert, obeys commands, Oriented to person, place, time, situation. Cardiovascular: Patient's skin is warm and dry. Rhythm is regular. Respiratory: Airway is patent Respiratory effort is even, unlabored, Respiratory pattern is regular, symmetrical. 09:45 Cardiovascular: Reports palpitations, Denies chest pain. GI: Abdomen is round rs5 non-distended, Abd is soft and non tender X 4 quads. : No signs and/or symptoms were reported regarding the genitourinary system. EENT: No signs and/or symptoms were reported regarding the EENT system. Derm: Skin is intact, Skin is pink, warm \T\ dry. Musculoskeletal: Range of motion: intact in all extremities. 10:58 Reassessment: No changes from previously documented assessment. rs5 Vital Signs: 09:50 BP 132 / 78; Pulse 104; Resp 19; Temp 98.3; Pulse Ox 97% ; Weight 126.55 kg; Height 5 ap3 ft. 4 in. ; 10:15 BP 125 / 80; Pulse 90; Resp 17; Pulse Ox 98% on R/A; rs5 11:20 BP 128 / 76; Pulse 94; Resp 18; Pulse Ox 98% on R/A; rs5 09:50 Body Mass Index 47.89 (126.55 kg, 162.56 cm) ap3 Ramos Coma Score: 10:55 Eye Response: spontaneous(4). Motor Response: obeys commands(6). Verbal Response: una oriented(5). Total: 15. ED Course: 09:31 Patient arrived in ED. mg5 09:31 Blade Peterson MD is Attending Physician. una 09:45 No provider procedures requiring assistance completed. rs5 09:53 Triage completed. ap3 09:54 Arm band placed on right wrist. ap3 09:54 Placed in gown. Bed in low position. Call light in reach. Side rails up X 1. Adult w/ ap3 patient. 10:07 Basic Metabolic Panel Sent. mb9 10:07 CBC with Diff Sent. mb9 10:07 LFT's Sent. mb9 10:07 Magnesium Sent. mb9 10:07 NT PRO-BNP Sent. mb9 10:07 PT-INR Sent. mb9 10:07 Troponin HS Sent. mb9 10:07 EKG done, by ED staff, reviewed by Blade Peterson MD. Inserted saline lock: 20 gauge in mb9 right antecubital area, using aseptic technique. Blood collected. 10:10 Larry Lay, RN is Primary Nurse. rs5 10:12 Client placed on continuous cardiac and pulse oximetry monitoring. NIBP monitoring mb9 applied. hall monitor on. Door closed. Noise minimized. Warm blanket given. 10:12 Initial lab(s) drawn, by me, sent to lab. Urine collected: clean catch specimen, clear. mb9 10:15 XRAY Chest (1 view) In Process Unspecified. EDMS 10:58 Emily Wren MD is Hospitalizing Provider. una 11:14 CT Aorta for Dissection In Process Unspecified. EDMS 11:20 IV discontinued, intact, bleeding controlled, No redness/swelling at site. Pressure rs5 dressing applied. Administered Medications: 10:06 Drug: NS 0.9% IV 500 ml IV at bolus once Route: IV; Rate: bolus; Site: right mb9 antecubital; 10:30 Follow up: Response: No adverse reaction rs5 10:12 Drug: Magnesium Sulfate IVPB 1 grams IVPB once over 1 hrs Route: IVPB; Infused Over: 1 mb9 hrs; Site: right antecubital; 10:30 Follow up: Response: No adverse reaction rs5 11:27 Drug: Magnesium Sulfate IVPB 2 grams IVPB once over 2 hrs Route: IVPB; Infused Over: 2 rs5 hrs; Site: left antecubital; 11:54 Follow up: Response: No adverse reaction rs5 11:27 Drug: Potassium PO Effervescent Tablet 25 mEq PO once; dissolve in 4 ounces of water or rs5 juice Route: PO; 11:54 Follow up: Response: No adverse reaction rs5 11:30 Drug: Metoprolol PO 25 mg PO once Route: PO; rs5 11:54 Follow up: Response: No adverse reaction rs5 Medication: 10:59 VIS not applicable for this client. rs5 Outcome: 10:59 Decision to Hospitalize by Provider. una 11:20 Admitted to ER Hold. Please see [facility] for further documentation. rs5 11:20 Condition: stable 11:20 Discharge instructions given to patient, family, Instructed on the need for admit, Demonstrated understanding of instructions, 15:51 Patient left the ED. bc6 Signatures: Dispatcher [employer] EDMS Blade Peterson MD MD cha Prokisch, Amanda RN RN ap3 Jaida Quiles RN RN mb9 Larry Lay RN RN rs5 Shauna Lezama bc6 Gregoria John mg5
[2023-09-28] MEDS ORDERED: POTASSIUM 25 MEQ EFFERV TAB ONE (11:01)
[2023-09-28] MEDS ORDERED: Magnesium Sulfate 2gm IVPB 2 G/50 ML BAG IV ONE (11:01)
--- NOTE | 2023-09-28 11:26 | RAD REPORT ---
EXAM DESCRIPTION: CT - Angio Aorta For Dissection - 09/28/2023 11:12 am CLINICAL HISTORY: Chest pain radiating to the back. PE;Dissection COMPARISON: No comparisons TECHNIQUE: CT angiography of the aorta was performed with MIPs. All CT scans are performed using dose optimization technique as appropriate and may include automated exposure control or mA/KV adjustment according to patient size. FINDINGS: A left aortic arch is present with bovine branching pattern of the great vessels.No acute aortic finding is seen such as aneurysm, penetrating ulcer or dissection. The celiac axis, SMA, KATINA and renal arteries are patent. No evidence of pulmonary embolism. The lungs are clear. The liver demonstrates no focal mass or biliary dilatation.Mild diffuse fatty liver.The spleen, pancr eas, adrenal glands and left kidney are within normal limits for arterial phase imaging.Right kidney contains a large stone in the right renal pelvis measuring 22 mm. Additional stone in the inferior ca lyx right kidney measuring 13 mm also present. No significant hydronephrosis. No bowel obstruction, free fluid or abscess.Anterior abdominal wall laxity with moderate fat containi ng umbilical hernia.A few pericolonic lymph nodes are seen in the right lower quadrant. Nonvisualized appendix. Moderate lower lumbar degenerative changes. IMPRESSION: No acute aortic finding is demonstrated. Right-sided renal stones without hydronephrosis. Numerous lymph nodes are present in the right lower quadrant surrounding the cecum, suggest followup colonoscopy on a nonemergent basis for further evaluation.
[2023-09-28] MEDS ORDERED: METOPROLOL TAR 25 MG TAB ONE (11:33)
[2023-09-28] MEDS ORDERED: ACETAMINOPHEN 500 MG TAB PO PRN (12:12)
[2023-09-28] MEDS ORDERED: ONDANSETRON 4 MG/2 ML VIAL IV PRN (12:12)
[2023-09-28] MEDS ORDERED: MORPHINE 2 MG/ML SYR IV PRN (12:12)
[2023-09-28] MEDS ORDERED: NITROGLYCERIN 0.4 MG/TAB SL PRN (12:17)
--- NOTE | 2023-09-28 12:19 | P.HP ---
Certification for Inpatient Patient admitted to: Observation Practitioner: I am a practitioner with admitting privileges, knowledge of patient current condition, hospital course, and medical plan of care. Services: Services provided to patient in accordance with Admission requirements found in Title 42 Section 412.3 of the Code of Federal Regulations Patient History Date of Service: 09/28/23 Reason for admission: chest pain History of Present Illness: 63 year old female with past medical history of hypertension, hyperlipidemia, diabetes type 2, obesity, arthritis, presents to the emergency room with chest pain, palpitations. She reports being seen in the emergency room x 2 in the last week. She reports chest pain is substernal radiates to the left arm,. She reports chest pain is constant 5 out of 10. She reports history of cardiac workup and has follow up appt scheduled. No reported nausea vomiting, diaphoresis, shortness of breath. EKG Rate is 108 beats/min. Rhythm is regular. QRS [place] is Normal. [place] interval is normal. QRS interval is normal. QT interval is normal. No Q waves. T waves are Normal. No ST changes noted. Clinical impression: Sinus tachycardia and No evidence of ischemia. Blood pressure 132 / 78; Pulse 104; Resp 19; Temp 98.3; Pulse Ox 97% ; Weight 126.55 kg; Height 5 ft. 4 in. plan to admit for chest pain rule out [place], palpitations, tachycardia, obesity, hypokalemia, hypomagnesia, diabetes type 2 with hyperglycemia. Cardiology to consult.; Laboratory evaluation troponin 3.7 normal, BNP normal 64, chest x-ray Mild interstitial pulmonary edema suspected. The heart is normal in size. No displaced fractures. IMPRESSION: Mild CHF is possible Allergies No Known Allergies Allergy (Unverified 08/04/11 05:02) Home Medications: NK 08/04/11 - Past Medical/Surgical History Diabetic: Yes -: Hypertension -: Hyperlipidemia -: Diabetes type 2 -: Nasal polyps -: Obesity -: Arthritis -: Knee surgery -: back surgery -: arm surgery - Social History Smoking Status: Never smoker Place of Residence: Home Review of Systems per HPI Physical Examination - Physical Exam General: Alert, In no apparent distress, Oriented x3, Obese HEENT: Atraumatic, Normocephalic Neck: 2+ carotid pulse no bruit, JVD not distended Respiratory: Normal air movement Cardiovascular: Normal pulses, Other (Sinus tachycardia) Capillary refill: <2 Seconds Gastrointestinal: Normal bowel sounds, No tenderness Musculoskeletal: No swelling, No contractures Integumentary: No rashes, No breakdown Neurological: Normal speech, Normal strength at 5/5 x4 extr - Studies Laboratory Data (last 24 hrs) 09/28/23 09/28/23 09/28/23 10:05 10:05 10:05 WBC 10.90 Hgb 13.5 Hct 41.1 Plt Count 346 PT 12.8 H INR 1.17 Sodium 134 L Potassium 3.4 L BUN 11 Creatinine 1.12 H Glucose 145 H Magnesium 1.4 L Total Bilirubin 0.8 AST 22 ALT 36 Alkaline Phosphatase 80 Lipase 29 Assessment and Plan - Plan Assessment plan Chest pain rule out [place] Palpitations Sinus tachycardia Cardiology consult, telemetry Trend troponins, aspirin, antilipid, as needed analgesics, presents to the emergency room with chest pain, palpitations. She reports being seen in the emergency room x 2 in the last week. She reports chest pain is substernal radiates to the left arm,. She reports chest pain is constant 5 out of 10. She reports history of cardiac workup and has follow up appt scheduled. No reported nausea vomiting, diaphoresis, shortness of breath. EKG Rate is 108 beats/min. Rhythm is regular. QRS [place] is Normal. [place] interval is normal. QRS interval is normal. QT interval is normal. No Q waves. T waves are Normal. No ST changes noted. Clinical impression: Sinus tachycardia and No evidence of ischemia. Blood pressure 132 / 78; Pulse 104; Resp 19; Temp 98.3; Pulse Ox 97% ; Weight 126.55 kg; Height 5 ft. 4 in Laboratory evaluation troponin 3.7 normal, BNP normal 64, chest x-ray Mild interstitial pulmonary edema suspected. The heart is normal in size. No displaced fractures IMPRESSION: Mild CHF is possible hypokalemia hypomagnesia Trend electrolytes replace as needed hypertension hyperlipidemia Obesity Resume appropriate home meds diabetes type 2 with hyperglycemia Accu-Chek, sliding scale insulin Full code DVT Lovenox Diet diabetic Disposition Home independent Discharge Plan: Home - Advance Directives Does patient have a Living Will: No Does patient have a Durable POA for Healthcare: No - Code Status/Comfort Care Code Status: Full Code Critical Care: No Time Spent Managing Pts Care (In Minutes): 55
[2023-09-28] MEDS: ENOXAPARIN 40 MG/0.4 ML SQ SCH (13:00)
[2023-09-28 13:17] VITALS: BMI 47.9
[2023-09-28] MEDS: INSULIN REGULAR (HUMAN) 100 UNIT/ML SQ SCH (16:30)
[2023-09-28] MEDS: METOPROLOL TAR 25 MG TAB PO SCH (17:52)
--- NOTE | 2023-09-28 18:19 | P.CNS ---
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 Allergies No Known Allergies Allergy (Verified 09/28/23 16:13) Home Medications: Cholecalciferol (Vitamin D3) [Vitamin D 1000 Iu Tab] 1,000 unit PO DAILY 09/28/23 Dulaglutide [Trulicity] 3 mg SQ Q7D 09/28/23 Methylprednisolone [Medrol dosepack] 4 mg PO DIRECTED 09/28/23 Oseltamivir [Tamiflu] 75 mg PO BID 09/28/23 Sulfamethoxazole/Trimethoprim [Bactrim 400-80 mg Tablet] 800 mg PO BID 09/28/23 - Past Medical/Surgical History Diabetic: Yes -: Hypertension -: Hyperlipidemia -: Diabetes type 2 -: Nasal polyps -: Obesity -: Arthritis -: Knee surgery -: back surgery -: arm surgery - Social History Place of Residence: Home Review of Systems 10-point ROS is otherwise unremarkable Physical Examination Temp Pulse Resp BP Pulse Ox 98.3 F 72 18 104/63 97 09/28/23 15:54 09/28/23 17:52 09/28/23 15:58 09/28/23 17:52 09/28/23 12:22 General: Alert, Oriented x3 HEENT: Atraumatic Neck: Supple, JVD not distended Respiratory: Clear to auscultation bilaterally Cardiovascular: No edema, Normal S1 S2 Gastrointestinal: Normal bowel sounds Laboratory Data (last 24 hrs) 09/28/23 09/28/23 09/28/23 10:05 10:05 10:05 WBC 10.90 Hgb 13.5 Hct 41.1 Plt Count 346 PT 12.8 H INR 1.17 Sodium 134 L Potassium 3.4 L BUN 11 Creatinine 1.12 H Glucose 145 H Magnesium 1.4 L Total Bilirubin 0.8 AST 22 ALT 36 Alkaline Phosphatase 80 Lipase 29 - Problems (1) Unstable angina Current Visit: Yes Status: Acute Plan: patient with multiple risk factors including DM, HTN, HLD will get stress test in am. NPO after midnight (2) HTN (hypertension) Current Visit: Yes Status: Acute Plan: Continue Metoprolol 12.5 mg po BID (3) HLD (hyperlipidemia) Current Visit: Yes Status: Acute Plan: Continue Lipitor 20 mg daily (4) Palpitation Current Visit: Yes Status: Acute Plan: Continue to monitor on Telemetery and continue metoprolol.
[2023-09-28] MEDS: ATORVASTATIN 20 MG TAB PO SCH (20:41)
[2023-09-28 21:04] LABS: Urine Bacteria <20 /HPF (<20); Urine Bilirubin NEGATIVE (Negative); Urine Blood Negative (Negative); Urine Clarity Clear (Clear); Urine Color Yellow (Yellow); Urine Culture Reflex Order NOT NEEDED; Urine Glucose NEGATIVE (Negative); Urine Ketones NEGATIVE (Negative); Urine Microscopic Reflex YN ORDER UMIC; Urine Mucus Slight /HPF (None Seen); Urine Nitrite NEGATIVE (Negative); Urine Protein TRACE (Negative); Urine RBC <5 /HPF (None Seen); Urine Urobilinogen 1+ (Normal); Urine WBC <5 /HPF (<5)
[2023-09-28 21:09] LABS: Specific Gravity > 1.030 (1.005-1.030)
[2023-09-29] MEDS: LOPERAMIDE HCL 2 MG CAPSULE PO PRN (03:42)
[2023-09-29 04:49] LABS: Absolute Basophils 0.1 K/uL (0-0.5); Absolute Eosinophils 0.1 K/uL (0-0.5); Absolute Lymphocytes (CBC) 2.6 K/uL (0.7-4.9); Absolute Neutrophil 8.2 K/uL (1.8-8.0); Basophils % 0.7 % (0-1.3); Eosinophils % 0.8 % (0-4.4); Hematocrit 38.6 % (36.0-45.0); MCH 30.1 pg (27.0-35.0); MCHC 33.6 g/dL (32.0-36.0); MCV 89.6 fL (80-100); MPV 9.5 fL (7.6-11.3); Monocytes % 8.5 % (3.3-12.3); Nucleated Red Blood Cells % 0.1 % (0-0); Platelets 329 thou/uL (152-406); RBC Red Blood Cell Count 4.31 M/uL (3.86-4.86); Red Cell Distribution Width 14.8 % (12.1-15.2)
[2023-09-29 05:12] LABS: Anion Gap 8.6 mEq/L (5.0-15.0); Potassium 3.6 mEq/L (3.5-5.1)
--- NOTE | 2023-09-29 07:29 | P.PN ---
Subjective Date of Service: 09/30/23 Chief Complaint: chest pain Chest pain controlled with as needed analgesics, no reported shortness of breath N.p.o. for stress test in the a.m. - Physical Exam General: Alert, In no apparent distress, Oriented x3, Obese HEENT: Atraumatic, Normocephalic Neck: 2+ carotid pulse no bruit, JVD not distended Respiratory: Normal air movement Cardiovascular: Normal pulses, Other (Sinus tachycardia) Capillary refill: <2 Seconds Gastrointestinal: Normal bowel sounds, No tenderness Musculoskeletal: No swelling, No contractures Integumentary: No rashes, No breakdown Neurological: Normal speech, Normal strength at 5/5 x4 extr Review of Systems Per HPI Physical Examination - Vital Signs Temperature: 97.3 F Blood Pressure: 101/56 Pulse: 66 Respirations: 14 Pulse Ox (%): 97 - Studies Laboratory Data (last 24 hrs) 09/28/23 09/28/23 09/28/23 10:05 10:05 10:05 WBC 10.90 Hgb 13.5 Hct 41.1 Plt Count 346 PT 12.8 H INR 1.17 Sodium 134 L Potassium 3.4 L BUN 11 Creatinine 1.12 H Glucose 145 H Magnesium 1.4 L Total Bilirubin 0.8 AST 22 ALT 36 Alkaline Phosphatase 80 Lipase 29 Assessment And Plan - Plan Assessment plan Chest pain rule out [place] Palpitations Sinus tachycardia Cardiology consult, telemetry Trend troponins, aspirin, antilipid, as needed analgesics, presents to the emergency room with chest pain, palpitations. She reports being seen in the emergency room x 2 in the last week. She reports chest pain is substernal radiates to the left arm,. She reports chest pain is constant 5 out of 10. She reports history of cardiac workup and has follow up appt scheduled. No reported nausea vomiting, diaphoresis, shortness of breath. EKG Rate is 108 beats/min. Rhythm is regular. QRS [place] is Normal. [place] interval is normal. QRS interval is normal. QT interval is normal. No Q waves. T waves are Normal. No ST changes noted. Clinical impression: Sinus tachycardia and No evidence of ischemia. Blood pressure 132 / 78; Pulse 104; Resp 19; Temp 98.3; Pulse Ox 97% ; Weight 126.55 kg; Height 5 ft. 4 in Laboratory evaluation troponin 3.7 normal, BNP normal 64, chest x-ray Mild interstitial pulmonary edema suspected. The heart is normal in size. No displaced fractures IMPRESSION: Mild CHF is possible Stress test scheduled for 09/28 per cardiology hypokalemia hypomagnesia Trend electrolytes replace as needed hypertension hyperlipidemia Obesity Resume appropriate home meds diabetes type 2 with hyperglycemia Accu-Chek, sliding scale insulin Full code DVT Lovenox Diet diabetic Disposition Home independent Discharge Plan: Home - Code Status/Comfort Care Code Status: Full Code Critical Care: No Time Spent Managing PTS Care (In Minutes): 35
--- NOTE | 2023-09-29 07:35 | P.DS ---
Admission Date: 09/29/23 Discharge Date: 09/30/23 Disposition: ROUTINE DISCHARGE Discharge Condition: GOOD Reason for Admission: chest pain Brief History of Present Illness: 63 year old female with past medical history of hypertension, hyperlipidemia, diabetes type 2, obesity, arthritis, presents to the emergency room with chest pain, palpitations. She reports being seen in the emergency room x 2 in the last week. She reports chest pain is substernal radiates to the left arm,. She reports chest pain is constant 5 out of 10. She reports history of cardiac workup and has follow up appt scheduled. No reported nausea vomiting, diaphoresis, shortness of breath. EKG Rate is 108 beats/min. Rhythm is regular. QRS [place] is Normal. [place] interval is normal. QRS interval is normal. QT interval is normal. No Q waves. T waves are Normal. No ST changes noted. Clinical impression: Sinus tachycardia and No evidence of ischemia. Blood pressure 132 / 78; Pulse 104; Resp 19; Temp 98.3; Pulse Ox 97% ; Weight 126.55 kg; Height 5 ft. 4 in. plan to admit for chest pain rule out [place], palpitations, tachycardia, obesity, hypokalemia, hypomagnesia, diabetes type 2 with hyperglycemia. Cardiology to consult.; Laboratory evaluation troponin 3.7 normal, BNP normal 64, chest x-ray Mild interstitial pulmonary edema suspected. The heart is normal in size. No displaced fractures. IMPRESSION: Mild CHF is possible - Physical Exam General: Alert, In no apparent distress, Oriented x3, Obese HEENT: Atraumatic, Normocephalic Neck: 2+ carotid pulse no bruit, JVD not distended Respiratory: Normal air movement Cardiovascular: Normal pulses, Other (Sinus tachycardia) Capillary refill: <2 Seconds Gastrointestinal: Normal bowel sounds, No tenderness Musculoskeletal: No swelling, No contractures Integumentary: No rashes, No breakdown Neurological: Normal speech, Normal strength at 5/5 x4 extr Hospital Course: 63-year-old female with a past medical history of hypertension hyperlipidemia, diabetes, presents to the emergency room with chest pain and palpitations. Was noted to have sinus tachycardia rate 108. No ST abnormality. Was evaluated by cardiology scheduled for stress test. Cardiac cath prior to discharge. Follow- up with primary care after discharge. Follow-up with cardiology after discharge. Assessment Sinus tachycardia Chest pain serial negative troponin Hypertension Hyperlipidemia Diabetes. Follow-up with cardiology in [address] Kaminski / Cardiac cath Normal coronary arteries. 2. Elevated LVEDP suggestive of diastolic heart failure. Stress test normal left ventricular ejection fraction, 70%. IMPRESSION: Large reversible defect of the inferior wall, concerning for myocardial ischemia. Educated on cardiac, low-salt diet Follow-up with cardiology after discharge Educated on low-sodium diet Resume home medication Continue home medicines as previously prescribed GOAL: Clear understanding of disease process INSTRUCTIONS: Physician Discharge Instructions: -DC IV and DC home -Follow-up with PCP in 1 to 2 weeks -Please call Dr. Wren at [phone] if any questions regarding hospital stay -Please call nursing station at [phone] if any nursing or medication questions -Return to the emergency room if symptoms worsen Diet: ADA, low sodium Activity: Fall precautions Vital Signs/Physical Exam: Temp Pulse Resp BP Pulse Ox 97.3 F 66 14 101/56 L 97 09/29/23 07:29 09/29/23 07:29 09/29/23 07:29 09/29/23 07:29 09/29/23 07:29 Laboratory Data at Discharge: WBC 12.00 thou/uL (4.3-10.9) H 09/29/23 04:10 Hgb 13.0 g/dL (12.0-15.0) 09/29/23 04:10 Hct 38.6 % (36.0-45.0) 09/29/23 04:10 Plt Count 329 thou/uL (152-406) 09/29/23 04:10 PT 12.8 SECONDS (9.5-12.5) H 09/28/23 10:05 INR 1.17 09/28/23 10:05 Sodium 134 mEq/L (136-145) L 09/29/23 04:10 Potassium 3.6 mEq/L (3.5-5.1) 09/29/23 04:10 BUN 17 mg/dL (7-18) 09/29/23 04:10 Creatinine 1.06 mg/dL (0.55-1.02) H 09/29/23 04:10 Glucose 112 mg/dL (74-106) H 09/29/23 04:10 Magnesium 2.0 mg/dL (1.6-2.4) 09/29/23 04:10 Total Bilirubin 0.8 mg/dL (0.2-1.0) 09/28/23 10:05 AST 22 U/L (15-37) 09/28/23 10:05 ALT 36 U/L (13-56) 09/28/23 10:05 Alkaline Phosphatase 80 U/L (45-117) 09/28/23 10:05 Triglycerides 73 mg/dL (<150) 09/29/23 04:10 Cholesterol 119 mg/dL (<200) 09/29/23 04:10 HDL Cholesterol 59 mg/dL (40-60) 09/29/23 04:10 Cholesterol/HDL Ratio 2.02 09/29/23 04:10 Lipase 29 U/L (13-75) 09/28/23 10:05 Home Medications: Cholecalciferol (Vitamin D3) [Vitamin D 1000 Iu Tab*] 1,000 unit PO DAILY 09/28/23 Dulaglutide [Trulicity] 3 mg SQ Q7D 09/28/23 Atorvastatin Calcium [Lipitor*] 20 mg PO BEDTIME #30 tab 09/30/23 Ferrous Gluconate [Fergon] 240 mg PO BID #60 tablet 09/30/23 Melatonin 5 mg PO BEDTIME PRN PRN #30 09/30/23 Metoprolol Tartrate [Lopressor*] 12.5 mg PO BID 6AM 6PM #30 tab 09/30/23 New Medications: Ferrous Gluconate [Fergon] 240 mg PO BID #60 tablet Atorvastatin Calcium [Lipitor*] 20 mg PO BEDTIME #30 tab Metoprolol Tartrate [Lopressor*] 12.5 mg PO BID 6AM 6PM #30 tab Melatonin 5 mg PO BEDTIME PRN PRN #30 PRN Reason: Insomnia Physician Discharge Instructions: -DC IV and DC home -Follow-up with PCP in 1 to 2 weeks -Follow-up with Cardiology in 1 to 2 weeks -Please call Dr. Wren at [phone] if any questions regarding hospital stay -Please call nursing station at [phone] if any nursing or medication questions -Return to the emergency room if symptoms worsen Diet: AHA Activity: Weight bearing as tolerated Followup: Abdullahi Hull MD [ACTIVE - CAN ADMIT] - 1-2 Weeks ([phone]. Call for appointment) Mario Alcaraz DO [Primary Care Provider] - 1-2 Weeks Time spent managing pt's care (in minutes): 55
[2023-09-29] MEDS: ASPIRIN 325 MG TAB PO SCH (08:03)
[2023-09-29] MEDS: POTASSIUM CL SA 10 MEQ TAB PO ONE (08:03)
[2023-09-29] MEDS ORDERED: REGADENOSON 0.4 MG/5 ML SYR IV ONE (09:40)
--- NOTE | 2023-09-29 10:56 | P.PN ---
Subjective Date of Service: 09/29/23 Chief Complaint: chest pain Subjective: No new changes Review of Systems 10-point ROS is otherwise unremarkable Physical Examination - Vital Signs Temperature: 97.2 F Blood Pressure: 107/57 Pulse: 73 Respirations: 16 Pulse Ox (%): 92 - Physical Exam General: Alert, Oriented x3 Neck: Supple Respiratory: Clear to auscultation bilaterally Cardiovascular: No edema, Normal S1 S2 Gastrointestinal: Normal bowel sounds Assessment And Plan - Current Problems (Diagnosis) (1) Unstable angina Current Visit: Yes Status: Acute Plan: patient with multiple risk factors including DM, HTN, HLD Pending stress test results, if normal then can discharge with cardiology follow up. if abnormal then NPO after midnight for cath in am. (2) HTN (hypertension) Current Visit: Yes Status: Acute Plan: Continue Metoprolol 12.5 mg po BID (3) HLD (hyperlipidemia) Current Visit: Yes Status: Acute Plan: Continue Lipitor 20 mg daily (4) Palpitation Current Visit: Yes Status: Acute Plan: Continue to monitor on Telemetery and continue metoprolol.
--- NOTE | 2023-09-29 11:22 | RAD REPORT ---
EXAM DESCRIPTION: NM - Rest Stress Cardiac Imaging - 09/29/2023 10:13 am CLINICAL HISTORY: CP COMPARISON: No comparisons TECHNIQUE: The patient was administered approximately 10.8 mCi of Tc 99m Sestamibi prior to resting SPECT imaging of the heart. The patient was then administered approximately 32.2 mCi of Tc 99m Sestam ibi following exercise or pharmacologic stress. Multiplanar SPECT images were reviewed. FINDINGS: Large reversible defect involving the inferior wall extending from the apical to the basal segment. Small fixed defect along the mid aspect of the anterior wall, could be artifactual or relat ed to a remote infarct. The end diastolic volume is 82 ml, the end systolic volume is 25 ml, and the ejection fraction is 70 %. IMPRESSION: Large reversible defect of the inferior wall, concerning for myocardial ischemia. Small fixed defect involving the mid segment of the anterior wall, could be artifactual or related to remote infarct. Normal left ventricular ejection fraction, 70%.
--- NOTE | 2023-09-29 13:02 | TREADPHA ---
DX: CHEST PAIN Date of Study: 09/29/2023 Ht: 5' 4 " Wt: 279 lb 0 oz Consulting Physician: LORENA MEDICATIONS: TYLENOL, JANAY ASPIRIN, LIPITOR, LOVENOX, NOVOLIN-R, IMODIUM, LOPRESSOR, MORPHINE, NITROSTAT, ZOFRAN HISTORY: DIABETES MELLITUS TYPE TWO, HIGH CHOLESTEROL, HYPERTENSION PHYSICIAL EXAMINATION: RESTING B.P.: 116/94 RESTING H.R.: 69 RESTING EKG: SINUS RHYTHM PROTOCOL: PHARMACOLOGIC EXERCISE TIME: 3:30 B.P. AT [place] STRESS: 182/42 IMPRESSION: LEXISCAN STRESS TEST PERFORMED. CARDIOLITE INJECTED PER PROTOCOL (SEE NUCLEAR MEDICINE REPORT). NO SUPRAVENTRICULAR TACHYCARDIA, VENTRICULAR TACHYCARDIA, OR ARRHYTHMIAS NOTED. PATIENT STATED SHORNESS OF BREATH DURING PROCEDURE, SHORTNESS OF BREATH ELEVIATED POST PROCEDURE.
[2023-09-29] MEDS ORDERED: HEPA 1000U/500MLS 2,000 UNIT/1,000 ML BAG IV ONE (15:12)
[2023-09-29] MEDS ORDERED: HEPARIN 10,000 UNIT/10 ML VIAL IV ONE (15:12)
[2023-09-29] MEDS ORDERED: HEPARIN 5000 UNIT/ML 1 ML VIAL ONE (15:12)
[2023-09-29] MEDS ORDERED: CLOPIDOGREL 75 MG TABLET ONE (15:13)
[2023-09-29] MEDS ORDERED: ATROPINE SULF 1 MG/10 ML SYR IV ONE (15:13)
[2023-09-29] MEDS ORDERED: TICAGRELOR 90 MG TABLET PO ONE (15:13)
[2023-09-29] MEDS ORDERED: VERAPAMIL HCL 10 MG/4 ML VIAL IV ONE (15:14)
[2023-09-29] MEDS ORDERED: MIDAZOLAM HCL 2 MG/2 ML INJ ONE (15:15)
[2023-09-29] MEDS ORDERED: FENTANYL CITR 100 MCG/2 ML ONE (15:15)
[2023-09-29] MEDS ORDERED: LIDOCAINE 1% 20 ML MDV ONE (15:29)
[2023-09-29] MEDS: NA CHLORIDE 0.9% 500 ML ONE (16:00)
--- NOTE | 2023-09-29 16:51 | OP ---
Date of Procedure: 09/29/2023 Surgeon: ERENDIRA BRYAN Procedures Performed: 1.Selective coronary angiogram. 2.Left heart catheterization. Indication: Unstable angina with grossly abnormal stress test. Access: Right radial artery 6-[place] closed with TR band. Complications: None. Bleeding: Less than 50 mL. Anesthesia: Total sedation time was 45 minutes. Description Of Procedure: After risks, benefits, and alternatives were explained, patient agreed to the procedure and signed informed consent. Patient was brought into cardiac catheterization laborato , prepped and draped in the usual sterile fashion. Then I accessed right radial artery using [employer] micropuncture kit, placed 6-[place] Slender sheath, took 5-[place] 4.0 catheter into aortic root, engaged left main, took standard views and then in the RCA, took standard views and the cathete r was pushed over the wire into the LV. Measured the LVEDP. Pullback did not record any gradient. Then I removed the catheter and the sheath, placed TR band with good hemostasis. Findings: 1.Left main; large and normal. 2.LAD; large vessel, normal, tortuous and normal diagonal branches. 3.Left circumflex; moderate size and normal. 4.RCA; large and dominant and normal. 5.Elevated LVEDP at 25 mmHg. Conclusion: 1.Normal coronary arteries. 2.Elevated LVEDP suggestive of diastolic heart failure. Recommendation: Diuretics. SR/MODL Voice ID: [id number] Report ID: [id number]
[2023-09-29] MEDS ORDERED: ACETAMINOPHEN 325 MG TABLET PO PRN (16:56)
[2023-09-29] MEDS ORDERED: NITROGLYCERIN 0.4 MG/TAB SL PRN (16:57)
[2023-09-29] MEDS ORDERED: NA CHLORIDE 0.9% 1,000 ML IV SCH (17:00)
[2023-09-29] MEDS: MELATONIN 5 MG TABLET PO PRN (21:51)
[2023-09-30 07:43] LABS: Percent Reticulocyte Count 0.78 % (0.4-2.05); RBC Red Blood Cell Count 4.36 M/uL (3.86-4.86)
[2023-09-30 08:10] LABS: Ferritin 142.8 ng/mL (8-388)
[2023-09-30 08:12] LABS: Thyroid Stimulating Hormone 4.44 uIU/mL (0.358-3.740)
[2023-09-30 10:37] VITALS: O2SAT 95
[2023-09-30] MEDS: SOD FERRIC GLUC COMPLX/SUCROSE 125 MG in NA CHLORIDE 0.9% 100 ML IV SCH (11:10)
[2023-09-30 12:19] VITALS: BP 115/58; TEMP 97.4
--- NOTE | 2023-09-30 13:59 | PN ---
Date of Progress Note: 09/30/2023 Subjective: Seen by bedside, doing clinically well. No further chest pain, status post coronary ang iogram yesterday. Review of Systems: No chest pain, shortness of breath, orthopnea, or cough. No nausea, vomiting, or diarrhea. All othe r systems were reviewed, they were negative. Objective: Vital signs: Reviewed. Head and Neck: Pupils are equal, reactive to light. Intact eye movements. No JVD. No cervical lym phadenopathy. Neck is supple. Thyroid is not enlarged. Lungs: Clear to auscultation bilaterally. No rhonchi, wheezing, or crackles. No accessory muscle u se. Heart: Regular rate and rhythm. No extra sounds. Abdomen: Soft, nontender. Bowel sounds positive. No organomegaly. No masses or hernia. No rigidi ty or rebound. Extremities: No edema, clubbing, or cyanosis. Intact pulses. Skin: No rash. No nodule. Neurologic: Alert, awake, oriented x3. No acute focal deficits appreciated. Investigations: Her labs were reviewed. BUN is 17, creatinine 1.06, and cardiac enzymes are negativ e. Assessment And Recommendations: 1.Chest pain, it was suggestive of unstable angina. However, status post coronary angiogram, no sig nificant coronary artery disease is found. To search for other causes of chest pain. 2.Hypertension. Blood pressure is controlled. 3.Dyslipidemia. Continue statin. 4.Diastolic heart failure. LVEDP was slightly elevated. Recommend low-salt diet and we will plan f or use of diuretics if diet alone does not work. Cardiology will sign off and patient is to follow up as an outpatient within 2 weeks postdischarge. SR/MODL Voice ID: [id number] Report ID: [id number]
== END 2023-09-30 13:00 | disposition home or self-care (01) | DRG 287 ==
LOC: ER 09:25 → ERHOLD 12:11 → 4TH 15:29 → OBSVTOIN 09-29 12:06
PROVIDERS: ADMIT Hospitalist; ATTEND Hospitalist
PROC: 4A023N7 Measurement of Cardiac Sampling and Pressure, Left Heart, Percutaneous Approach (ICD-10-PCS; principal; 2023-09-29)
PROC: B2111ZZ Fluoroscopy of Multiple Coronary Arteries using Low Osmolar Contrast (ICD-10-PCS; 2023-09-29)
DX: I25.110 Atherosclerotic heart disease of native coronary artery with unstable angina pectoris (principal); Z68.42 Body mass index [BMI] 45.0-49.9, adult; I50.30 Unspecified diastolic (congestive) heart failure; I11.0 Hypertensive heart disease with heart failure; E66.01 Morbid (severe) obesity due to excess calories; E87.6 Hypokalemia; E83.42 Hypomagnesemia; E11.65 Type 2 diabetes mellitus with hyperglycemia; E78.5 Hyperlipidemia, unspecified; M19.90 Unspecified osteoarthritis, unspecified site; I25.9 Chronic ischemic heart disease, unspecified; R00.0 Tachycardia, unspecified; Z79.899 Other long term (current) drug therapy
CPT/HCPCS: 36415; 71045; 71275; 74175; 76937; 78452; 80048; 80061; 80076; 81001; 82533; 82607; 82728; 82947; 83540; 83690; 83735; 83880; 84439; 84443; 84484; 85025; 85044; 85610; 93017; 93458; 99285; A9500; C1893; J0461; J1644; J1650; J2001; J2250; J2785; J2916; J3010; J3475; J7040; Q9966; Q9967